=== PATIENT | male | born 1940 | race Caucasian/White ===

== ENCOUNTER 2018-10-27 17:00 | Inpatient (IN) | payer MEDICARE, SELFPAY ==
[2018-10-27 17:55] VITALS: BP 119/68; PULSE 104; RESP 22; TEMP 36.8; O2SAT 98
--- NOTE | 2018-10-27 17:56 | NURSING ---
Patient admitted to room 20 from [facility]. Oriented to room and call light system explained.
[2018-10-27 18:32] VITALS: BMI 19.5
[2018-10-27 18:37] VITALS: BMI 19.6
[2018-10-27 20:05] VITALS: PULSE 104; RESP 19; O2SAT 99
[2018-10-27] MEDS: Ipratropium/Albuterol Sulfate 3 ML AMPUL.NEB INHALATION ×2 (20:05→23:00)
[2018-10-27] MEDS: Budesonide Respules 0.5 MG/2 ML AMPUL.NEB. INHALATION (20:05)
[2018-10-27 21:26] LABS: Bedside Glucose 405 mg/dL (70-110)
--- NOTE | 2018-10-27 21:40 | PCM.HP.STD ---
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 The patient is a 78 year old Male with below past medical history with following: Admitted [facility] with acute respiratory failure, home oxygen 3 Liters per nasal cannula. Treated with Levaquin, Steroids, Aerosols, Guaifenesin. BiPAP at night, off and on during the day. CT chest showed right middle lobe consolidation, neoplasm cannot be excluded. Palliative care consulted. 10/27/2018 Admit to TCU with debility, here for rehabilitation, strengthening, prior to discharged home with spouse. 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) Diabetes mellitus (Chronic) BPH (benign prostatic hyperplasia) (Chronic) Iron deficiency anemia (Chronic) Allergic rhinitis (Chronic) Insomnia (Chronic) Allergies morphine Allergy (Verified 10/27/18 18:36) Other Home Medications: Ambulatory Orders Medication Instructions Recorded Acetaminophen [Tylenol] 650 mg PO Q4H PRN PRN 10/27/18 Albuterol Aerosols [Ventolin 2.5 mg INHALATION Q4H PRN PRN 10/27/18 Aerosols] Budesonide Aerosol [Pulmicort 0.5 mg INHALATION BID 10/27/18 Aerosol] Docusate Sodium 100 mg PO DAILY 10/27/18 Ferrous Sulfate 325 mg PO DAILY 10/27/18 Fluticasone 0.05% [Flonase Nasal 1 spray NASAL 5X/DAY PRN 10/27/18 [place]] Furosemide [Lasix] 40 mg PO BIDLX 10/27/18 Glipizide 5 mg PO BIDCM 10/27/18 Ipratropium/Albuterol Sulfate 3 ml INHALATION Q4H.RT 10/27/18 [Duoneb] Loratadine 10 mg PO DAILY 10/27/18 Losartan Potassium 25 mg PO DAILY 10/27/18 Melatonin 3 mg PO QHS PRN 10/27/18 Metformin HCl 500 mg PO BID 10/27/18 Potassium Chloride [K-Dur] 20 meq PO BID 10/27/18 Prednisone 40 mg PO DAILY 10/27/18 Tamsulosin HCl 0.4 mg PO DAILY 10/27/18 Terazosin HCl 10 mg PO QHS 10/27/18 traMADol [Ultram] 50 mg PO Q12H PRN PRN 10/27/18 Surgical History: - - Needle biopsy of lung, [place] filter. Psychiatric History: No pertinent psych hx Lives: Spouse/ Significant Other Smoking Status: Former smoker Tobacco Use: Non-smoker Alcohol: None Drugs: None - *Family History Maternal History Items: No pertinent history Paternal History Items: No pertinent history Review of Systems Constitutional: Reports: Weakness. Denies: Chills, Fever, Weight Change HEENT: Denies: Head Aches, Sinus Congestion, Sinus Drainage Cardiovascular: Denies: Chest Pain, Palpitations Respiratory: Reports: Shortness of Breath, Shortness of breath at rest, Shortness of breath upon exertion, Wheezing. Denies: Cough, Sputum production Gastrointestinal: Denies: Abdominal Pain, Nausea, Vomiting Genitourinary: Denies: Dysuria Musculoskeletal: Denies: Joint Pain, Joint Tenderness Skin: Denies: Rash, Wounds Neurological: Denies: Numbness, Tingling, Focal weakness Psychiatric: Denies: Anxiety, Depression, Homicidal Ideations, Suicidal Ideations Hematologic/ Lymphatic: Denies: Easy Bruising, Easy Bleeding VTE Information - Inpt Only VTE Present on Admission: No VTE Mechan Device Prophylaxis: Knee High FELIX Hose VTE Pharm Prophylaxis ordered?: Yes Patient Problems: Active and Suspected Problems Debility (Acute) Acute respiratory failure (Acute) Dyspnea on exertion (Acute) Community acquired pneumonia (Acute) Congestive heart failure (Acute) Lung mass (Acute) Hypokalemia (Acute) - Physical Exam General: Alert, Oriented x3, Cooperative HEENT: Atraumatic, PERRLA, EOMI, Normocephalic Neck: Supple, No JVD, Negative Carotid Bruits Lungs: Clear to auscultation, Rhonchi, Wheezes, - - Decreased air movement. Cardiovascular: Regular rate, No murmurs Abdomen: Bowel Sounds Present, Soft, Non Tender Extremities: No edema, Capillary Refill Less than 3 Seconds Skin: No rashes, No breakdown Musculoskeletal: No Tenderness to Palpation of Joints or Extremities Neurological: Cranial nerves II-XII grossly intact Psych/Mental Status: Normal Affect, Appropriate Vital Signs Temp Pulse Resp BP Pulse Ox 98.2 F 104 H 22 H 119/68 98 10/27/18 17:55 10/27/18 17:55 10/27/18 17:55 10/27/18 17:55 10/27/18 17:55 Oxygen Flow Rate (L/min) 3 Oxygen Delivery Method Nasal Cannula Weight: 58.5 kg Body Mass Index (BMI) 19.5 Intake and Output for Last 24 Hours 10/25/18 10/26/18 10/27/18 23:59 23:59 23:59 Intake Total 180 / 180 Balance 180 / 180 POC Glucose 10/27/18 21:21 POC Glucose 405 H Assessment/Plan All Active Problems Debility (Acute) Acute respiratory failure (Acute) Dyspnea on exertion (Acute) Community acquired pneumonia (Acute) Congestive heart failure (Acute) Lung mass (Acute) Hypokalemia (Acute) 78 year old male with below past medical history hospitalized for acute respiratory failure secondary to community acquired pneumonia, COPD, congestive heart failure, complicated by right middle lobe lung mass, admitted to TCU with debility, here for rehabilitation, strengthening, prior to discharge home with spouse. Debility - PT/OT. Pain - Tylenol 1000MG Q6H PRN mild pain, Tramadol 50MG Q12H PRN moderate pain. Bowel - Miralax 17GM daily, Senna/colace 1 tablet BID, Dulcolax 10MG daily PRN. Pneumonia vaccination - Administer Prevnar 13 and/or Pneumovax 23 as necessary. DVT prophylaxis - Lovenox 40MG SC daily. COPD - Albuterol 2.5MG Q4H PRN, Pulmicort 0.5MG BID, Duoneb 3ML Q6H, Prednisone taper. BPH - Doxazosin 8MG QHS, Tamsulosin 0.4MG daily. Iron deficiency anemia - Ferrex 150MG daily. Allergic Rhinitis - Loratadine 10MG daily, Flonase 1 spray 5x/day PRN. Congestive Heart Failure - Losartan 25MG daily, Lasix 40MG twice daily. Diabetes Mellitus II - Metformin 500MG BID, Glipizide 5MG BID, add Lantus 10 units BID, while on prednisone taper. Nutrition - Glucerna 120ML 4x/day. Insomnia - Melatonin 3MG QHS PRN. Hypokalemia - K-Dur 20MEQ BID. Lung mass(RML) - Repeat CT of chest with contrast.
--- NOTE | 2018-10-27 21:45 | HP.PCM_ITS ---
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 The patient is a 78 year old Male with below past medical history with following: Admitted [facility] with acute respiratory failure, home oxygen 3 Liters per nasal cannula. Treated with Levaquin, Steroids, Aerosols, Guaifenesin. BiPAP at night, off and on during the day. CT chest showed right middle lobe consolidation, neoplasm cannot be excluded. Palliative care consulted. 10/27/2018 Admit to TCU with debility, here for rehabilitation, strengthening, prior to discharged home with spouse. 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) Diabetes mellitus (Chronic) BPH (benign prostatic hyperplasia) (Chronic) Iron deficiency anemia (Chronic) Allergic rhinitis (Chronic) Insomnia (Chronic) Allergies morphine Allergy (Verified 10/27/18 18:36) Other Home Medications: Ambulatory Orders Medication Instructions Recorded Acetaminophen [Tylenol] 650 mg PO Q4H PRN PRN 10/27/18 Albuterol Aerosols [Ventolin 2.5 mg INHALATION Q4H PRN PRN 10/27/18 Aerosols] Budesonide Aerosol [Pulmicort 0.5 mg INHALATION BID 10/27/18 Aerosol] Docusate Sodium 100 mg PO DAILY 10/27/18 Ferrous Sulfate 325 mg PO DAILY 10/27/18 Fluticasone 0.05% [Flonase Nasal 1 spray NASAL 5X/DAY PRN 10/27/18 [place]] Furosemide [Lasix] 40 mg PO BIDLX 10/27/18 Glipizide 5 mg PO BIDCM 10/27/18 Ipratropium/Albuterol Sulfate 3 ml INHALATION Q4H.RT 10/27/18 [Duoneb] Loratadine 10 mg PO DAILY 10/27/18 Losartan Potassium 25 mg PO DAILY 10/27/18 Melatonin 3 mg PO QHS PRN 10/27/18 Metformin HCl 500 mg PO BID 10/27/18 Potassium Chloride [K-Dur] 20 meq PO BID 10/27/18 Prednisone 40 mg PO DAILY 10/27/18 Tamsulosin HCl 0.4 mg PO DAILY 10/27/18 Terazosin HCl 10 mg PO QHS 10/27/18 traMADol [Ultram] 50 mg PO Q12H PRN PRN 10/27/18 Surgical History: - - Needle biopsy of lung, [place] filter. Psychiatric History: No pertinent psych hx Lives: Spouse/ Significant Other Smoking Status: Former smoker Tobacco Use: Non-smoker Alcohol: None Drugs: None - *Family History Maternal History Items: No pertinent history Paternal History Items: No pertinent history Review of Systems Constitutional: Reports: Weakness. Denies: Chills, Fever, Weight Change HEENT: Denies: Head Aches, Sinus Congestion, Sinus Drainage Cardiovascular: Denies: Chest Pain, Palpitations Respiratory: Reports: Shortness of Breath, Shortness of breath at rest, Shortness of breath upon exertion, Wheezing. Denies: Cough, Sputum production Gastrointestinal: Denies: Abdominal Pain, Nausea, Vomiting Genitourinary: Denies: Dysuria Musculoskeletal: Denies: Joint Pain, Joint Tenderness Skin: Denies: Rash, Wounds Neurological: Denies: Numbness, Tingling, Focal weakness Psychiatric: Denies: Anxiety, Depression, Homicidal Ideations, Suicidal Ideations Hematologic/ Lymphatic: Denies: Easy Bruising, Easy Bleeding VTE Information - Inpt Only VTE Present on Admission: No VTE Mechan Device Prophylaxis: Knee High FELIX Hose VTE Pharm Prophylaxis ordered?: Yes Patient Problems: Active and Suspected Problems Debility (Acute) Acute respiratory failure (Acute) Dyspnea on exertion (Acute) Community acquired pneumonia (Acute) Congestive heart failure (Acute) Lung mass (Acute) Hypokalemia (Acute) - Physical Exam General: Alert, Oriented x3, Cooperative HEENT: Atraumatic, PERRLA, EOMI, Normocephalic Neck: Supple, No JVD, Negative Carotid Bruits Lungs: Clear to auscultation, Rhonchi, Wheezes, - - Decreased air movement. Cardiovascular: Regular rate, No murmurs Abdomen: Bowel Sounds Present, Soft, Non Tender Extremities: No edema, Capillary Refill Less than 3 Seconds Skin: No rashes, No breakdown Musculoskeletal: No Tenderness to Palpation of Joints or Extremities Neurological: Cranial nerves II-XII grossly intact Psych/Mental Status: Normal Affect, Appropriate Vital Signs Temp Pulse Resp BP Pulse Ox 98.2 F 104 H 22 H 119/68 98 10/27/18 17:55 10/27/18 17:55 10/27/18 17:55 10/27/18 17:55 10/27/18 17:55 Oxygen Flow Rate (L/min) 3 Oxygen Delivery Method Nasal Cannula Weight: 58.5 kg Body Mass Index (BMI) 19.5 Intake and Output for Last 24 Hours 10/25/18 10/26/18 10/27/18 23:59 23:59 23:59 Intake Total 180 / 180 Balance 180 / 180 POC Glucose 10/27/18 21:21 POC Glucose 405 H Assessment/Plan All Active Problems Debility (Acute) Acute respiratory failure (Acute) Dyspnea on exertion (Acute) Community acquired pneumonia (Acute) Congestive heart failure (Acute) Lung mass (Acute) Hypokalemia (Acute) 78 year old male with below past medical history hospitalized for acute respiratory failure secondary to community acquired pneumonia, COPD, congestive heart failure, complicated by right middle lobe lung mass, admitted to TCU with debility, here for rehabilitation, strengthening, prior to discharge home with spouse. * Debility - PT/OT. * Pain - Tylenol 1000MG Q6H PRN mild pain, Tramadol 50MG Q12H PRN moderate pain. * Bowel - Miralax 17GM daily, Senna/colace 1 tablet BID, Dulcolax 10MG daily PRN. * Pneumonia vaccination - Administer Prevnar 13 and/or Pneumovax 23 as necessary. * DVT prophylaxis - Lovenox 40MG SC daily. * COPD - Albuterol 2.5MG Q4H PRN, Pulmicort 0.5MG BID, Duoneb 3ML Q6H, Prednisone taper. * BPH - Doxazosin 8MG QHS, Tamsulosin 0.4MG daily. * Iron deficiency anemia - Ferrex 150MG daily. * Allergic Rhinitis - Loratadine 10MG daily, Flonase 1 spray 5x/day PRN. * Congestive Heart Failure - Losartan 25MG daily, Lasix 40MG twice daily. * Diabetes Mellitus II - Metformin 500MG BID, Glipizide 5MG BID, add Lantus 10 units BID, while on prednisone taper. * Nutrition - Glucerna 120ML 4x/day. * Insomnia - Melatonin 3MG QHS PRN. * Hypokalemia - K-Dur 20MEQ BID. * Lung mass(RML) - Repeat CT of chest with contrast.
[2018-10-27 22:07] VITALS: PULSE 105; O2SAT 99
[2018-10-27] MEDS: Doxazosin 4 MG Tablet 8 MG PO (22:32)
[2018-10-27] MEDS: Glucerna Shake 120 ML LIQUID PO (22:34)
[2018-10-27] MEDS: MELATONIN 3 MG TABLET PO (22:49)
[2018-10-27 23:00] VITALS: PULSE 98; RESP 18
[2018-10-27 23:10] VITALS: PULSE 98; RESP 12; RESP 18; O2SAT 99
[2018-10-28] VITALS (9 sets, daily range): BP systolic 157; BP diastolic 56; PULSE 64–112; RESP 12–28; TEMP 35.9; O2SAT 94–99
[2018-10-28] MEDS: Ipratropium/Albuterol Sulfate 3 ML AMPUL.NEB INHALATION ×6 (03:40→21:27)
[2018-10-28] MEDS: Polyethylene Glycol 3350 17 GM PACKET PO (05:58)
[2018-10-28] MEDS: Senna/Docusate Sodium 1 Tablet PO ×2 (06:00→17:46)
[2018-10-28] MEDS: Loratadine 10 MG Tablet PO (06:00)
[2018-10-28] MEDS: Furosemide 40 MG Tablet PO ×2 (06:00→14:02)
[2018-10-28] MEDS: Losartan Potassium 25 MG Tablet PO (06:00)
[2018-10-28 06:05] LABS: Absolute Lymphocyte Count 2.13 X10^3/ul (0.83-4.51); Basophil# 0.01 X10^3/uL; Basophil% 0.1 % (0-1); Eosinophil# 0.15 X10^3/uL; Eosinophils% 1.6 % (0-5); Hematocrit 36.5 % (40-54); Hemoglobin 10.9 g/dl (13.0-16.5); Lymphocyte # 2.13 X10^3/ul (4.0); Lymphocyte % 22.9 % (19-41); Mean Corp Hgb Conc 29.9 g/gl (32-36); Mean Corpuscular Volume 90.6 fL (80-94); Mean Platelet Vol. 9.5 fl (6.2-12.0); Monocyte# 0.98 X10^3/uL; Monocyte% 10.5 % (0-10); Neutrophil # 5.96 X10^3/uL (2.7-7.7); Platelet Count 268 K/mm3 (150-450); RBC Distribution Width CV 14.9 % (11.6-14.6); RBC Distribution Width SD 48.1 fl (35.1-43.9); Red Blood Count 4.03 M/mm3 (4.6-6.2); White Blood Count 9.3 K/mm3 (4.4-11.0)
[2018-10-28] MEDS: Glucerna Shake 120 ML LIQUID PO ×4 (06:05→19:35)
[2018-10-28] MEDS: Nystatin Powder 15gm Bottle 1 APPLIC TOPICAL ×2 (06:06→19:36)
[2018-10-28] MEDS: Menthol/Lanolin/Calamine/Znox 113 GM Tube 1 APPLIC TOPICAL ×2 (06:06→19:35)
[2018-10-28 06:11] LABS: POSITIVE COUNT NO; POSITIVE DIFFERENTIAL NO; POSITIVE MORPHOLOGY NO
[2018-10-28 06:19] LABS: Anion Gap 5 (5-15); BUN 30 mg/dL (7-18); BUN/Creat Ratio 38.8 RATIO (10-20); Calcium,Total 8.7 mg/dL (8.5-10.1); Chloride 90 mmol/L (98-107); Creatinine, Serum 0.77 mg/dL (0.70-1.30); EST Glomerular Filtration Rate 104 mL/min (>60); Est Glom Filt Rate - Afr Amer 126 mL/min (>60); Glucose 142 mg/dL (74-106); Potassium 4.3 mmol/L (3.5-5.1); Sodium Level 134 mmol/L (136-145)
[2018-10-28 06:21] LABS: Bedside Glucose 142 mg/dL (70-110)
[2018-10-28] MEDS: Enoxaparin 40 MG/0.4 ML Syringe SC (06:45)
[2018-10-28] MEDS: predniSONE 20 MG Tablet 10 MG PO (08:20)
[2018-10-28] MEDS: Iron Polysaccharide Complex 150 MG CAPSULE PO (08:20)
[2018-10-28] MEDS: glipiZIDE 5 MG Tablet PO ×2 (08:20→17:44)
[2018-10-28] MEDS: 0.9% Saline Lock 10 ML Syringe IV (08:25)
[2018-10-28 11:36] LABS: Bedside Glucose 294 mg/dL (70-110)
[2018-10-28] MEDS: Tuberculin,Purif.prot.deriv. 50 TU/ML Vial 5 ML ID (11:47)
[2018-10-28] MEDS: traMADol 50 MG Tablet PO (11:54)
[2018-10-28] MEDS: Fluticasone 0.05% 1 SPRAY NASAL.SRY NASAL ×3 (13:59→19:35)
--- NOTE | 2018-10-28 16:27 | NURSING ---
brought in pt's own bipap in room filled with distilled water
[2018-10-28 17:06] LABS: Bedside Glucose 400 mg/dL (70-110)
[2018-10-28] MEDS: Tamsulosin HCl 0.4 MG Capsule PO (17:47)
--- NOTE | 2018-10-28 18:36 | NURSING ---
blood sugar 400 tonight, Dr Rankin adjusted insulins
[2018-10-28] MEDS: Doxazosin 4 MG Tablet 8 MG PO (19:35)
--- NOTE | 2018-10-28 20:10 | CPS ---
Pts. home BiPAP unit set up at bedside. O2 bled in at 3L per patients normal home settings. Water chamber full.
[2018-10-28 21:06] LABS: Bedside Glucose 412 mg/dL (70-110)
[2018-10-29] VITALS (8 sets, daily range): BP systolic 112; BP diastolic 62; PULSE 91–110; RESP 12–25; TEMP 37.1; O2SAT 97–100
[2018-10-29] MEDS: Ipratropium/Albuterol Sulfate 3 ML AMPUL.NEB INHALATION ×6 (00:42→23:10)
[2018-10-29] MEDS: Polyethylene Glycol 3350 17 GM PACKET PO (06:11)
[2018-10-29] MEDS: Glucerna Shake 120 ML LIQUID PO ×4 (06:11→22:30)
[2018-10-29] MEDS: Senna/Docusate Sodium 1 Tablet PO ×2 (06:13→17:34)
[2018-10-29] MEDS: Furosemide 40 MG Tablet PO ×2 (06:13→15:17)
[2018-10-29] MEDS: Loratadine 10 MG Tablet PO (06:13)
[2018-10-29] MEDS: Enoxaparin 40 MG/0.4 ML Syringe SC (06:13)
[2018-10-29] MEDS: Losartan Potassium 25 MG Tablet PO (06:13)
[2018-10-29] MEDS: Nystatin Powder 15gm Bottle 1 APPLIC TOPICAL ×2 (06:15→22:30)
[2018-10-29] MEDS: Menthol/Lanolin/Calamine/Znox 113 GM Tube 1 APPLIC TOPICAL ×2 (06:15→22:30)
[2018-10-29] MEDS: Fluticasone 0.05% 1 SPRAY NASAL.SRY NASAL ×4 (06:16→22:31)
[2018-10-29 06:21] LABS: Bedside Glucose 57 mg/dL (70-110)
[2018-10-29 06:41] LABS: Bedside Glucose 78 mg/dL (70-110)
--- NOTE | 2018-10-29 06:41 | NURSING ---
Addendum entered by Ceci Wade 10/29/18 08:53: Dr Rankin aware, new order hold lantus. Original Note: Pt blood sugar 57 this AM. Pt alert and oriented x3 and denies any symptoms. OAldo and reshma hernandez provided. Recheck 78. Will update Dr. Rankin.
[2018-10-29] MEDS: Iron Polysaccharide Complex 150 MG CAPSULE PO (08:05)
[2018-10-29] MEDS: glipiZIDE 5 MG Tablet PO ×2 (08:06→17:33)
[2018-10-29] MEDS: predniSONE 20 MG Tablet 10 MG PO (08:06)
[2018-10-29 11:00] LABS: Bedside Glucose 221 mg/dL (70-110)
[2018-10-29 17:00] LABS: Bedside Glucose 466 mg/dL (70-110)
[2018-10-29] MEDS: Tamsulosin HCl 0.4 MG Capsule PO (17:34)
[2018-10-29] MEDS: Insulin Lispro 100 UNIT/ML INSULN.PEN 10 UNIT SC (18:53)
[2018-10-29 20:41] LABS: Bedside Glucose 425 mg/dL (70-110)
[2018-10-29 21:41] LABS: Bedside Glucose 364 mg/dL (70-110)
[2018-10-29] MEDS: Doxazosin 4 MG Tablet 8 MG PO (22:29)
[2018-10-30] MEDS: Polyethylene Glycol 3350 17 GM PACKET PO (06:07)
[2018-10-30] MEDS: Menthol/Lanolin/Calamine/Znox 113 GM Tube 1 APPLIC TOPICAL ×2 (06:08→20:22)
[2018-10-30] MEDS: Loratadine 10 MG Tablet PO (06:08)
[2018-10-30] MEDS: Enoxaparin 40 MG/0.4 ML Syringe SC (06:08)
[2018-10-30] MEDS: Senna/Docusate Sodium 1 Tablet PO ×2 (06:08→16:44)
[2018-10-30] MEDS: Nystatin Powder 15gm Bottle 1 APPLIC TOPICAL ×2 (06:08→20:22)
[2018-10-30] MEDS: Losartan Potassium 25 MG Tablet PO (06:08)
[2018-10-30] MEDS: Furosemide 40 MG Tablet PO ×2 (06:08→13:17)
[2018-10-30] MEDS: Fluticasone 0.05% 1 SPRAY NASAL.SRY NASAL ×4 (06:10→20:23)
[2018-10-30] MEDS: Glucerna Shake 120 ML LIQUID PO ×4 (06:11→20:20)
--- NOTE | 2018-10-30 06:39 | NURSING ---
Pt blood sugar this AM 57. A&Ox3. Stood up to use the urinal without any complications. Pt asymptomatic. Oari and reshma hernandez provided. Blood sugar recheck 113. Pt resting in bed with call light in reach.
[2018-10-30 06:45] LABS: Bedside Glucose 113 mg/dL (70-110)
[2018-10-30 06:45] LABS: Bedside Glucose 57 mg/dL (70-110)
[2018-10-30 07:24] VITALS: PULSE 100; RESP 16; O2SAT 100
[2018-10-30] MEDS: Ipratropium/Albuterol Sulfate 3 ML AMPUL.NEB INHALATION ×3 (07:24→15:29)
--- NOTE | 2018-10-30 08:08 | NURSING ---
Addendum entered by Heidi Copeland 10/30/18 08:23: Per andrzej De Leon to hold AM humalog and Lantus. Original Note: New order to d/c Glipizide.
[2018-10-30] MEDS: Iron Polysaccharide Complex 150 MG CAPSULE PO (09:10)
[2018-10-30] MEDS: predniSONE 20 MG Tablet 10 MG PO (09:10)
[2018-10-30] MEDS: traMADol 50 MG Tablet PO (09:16)
[2018-10-30 11:25] LABS: Bedside Glucose 347 mg/dL (70-110)
[2018-10-30 11:31] VITALS: PULSE 100; RESP 20
--- NOTE | 2018-10-30 12:16 | PCM.PN.RX ---
<Yevgeniy Arrieta D - Last Filed: 10/30/18 12:16> Progress Note - Pharmacy Subjective: TCU Admission Objective: Allergies morphine Allergy (Verified 10/27/18 18:36) Other Current Medications Generic Name Dose Route Start Last Admin Trade Name Freq PRN Reason Stop Dose Admin Acetaminophen 1,000 mg 10/27/18 22:00 Tylenol PO Q6H PRN PRN MILD PAIN (1-3/10) Albuterol Sulfate 2.5 mg 10/27/18 18:19 Ventolin Aerosols INHALATION Q4H PRN PRN SOB &/OR WHEEZING Albuterol/Ipratropium 3 ml 10/27/18 18:30 10/30/18 11:31 Duoneb INHALATION 3 ml Q4H.RT KYLE Administration Bisacodyl 10 mg 10/27/18 21:58 Dulcolax PO DAILY PRN Constipation Budesonide 0.5 mg 10/28/18 06:00 10/27/18 20:05 Pulmicort Aerosol INHALATION 0.5 mg BID.RT KYLE Administration Calamine/Phenol 1 applic 10/28/18 06:00 10/30/18 06:08 Calmoseptine Ointment TOPICAL 1 applicatio 0600,2200 KYLE Administration Protocol Dextrose 0 gm 10/29/18 19:12 D50w Syringe IV X1 PRN Hypoglycemia Protocol Doxazosin Mesylate 8 mg 10/27/18 22:00 10/29/18 22:29 Cardura PO 8 mg QHS KYLE Administration Enoxaparin Sodium 40 mg 10/28/18 06:00 10/30/18 06:08 Lovenox SC 40 mg DAILY@0600 KYLE Administration Fluticasone Propionate 1 spray 10/28/18 12:00 10/30/18 06:10 Flonase Nasal Carr NASAL 1 spray 4X/DAY KYLE Administration Furosemide 40 mg 10/28/18 06:00 10/30/18 06:08 Lasix PO 40 mg BIDLX KYLE Administration Glucagon 1 mg 10/29/18 19:12 IM .X1 PRN Hypoglycemia Insulin Glargine 15 units 10/29/18 06:00 10/30/18 08:24 Lantus ([facility]) SC Not Given BID KYLE Insulin Human Lispro 10 unit 10/29/18 18:45 10/30/18 08:24 Humalog Kwikpen ([facility]) SC Not Given TIDAC [facility] Loratadine 10 mg 10/28/18 06:00 10/30/18 06:08 Claritin PO 10 mg DAILY KYLE Administration Losartan Potassium 25 mg 10/28/18 06:00 10/30/18 06:08 Cozaar PO 25 mg DAILY KYLE Administration Melatonin 3 mg 10/27/18 18:19 10/27/18 22:49 Melatonin PO 3 mg QHS PRN Administration INSOMNIA Metformin HCl 500 mg 10/28/18 08:00 10/30/18 09:11 Glucophage PO Not Given BIDCM [facility] Multi-Ingredient Cream 1 applic 10/28/18 06:00 10/30/18 06:08 Eucerin TOPICAL 1 applicatio 599,0 [facility] Administration Protocol Nutritional Formula (Lactose Free) 120 ml 10/27/18 22:00 10/30/18 06:11 Glucerna Shake PO 120 ml 4X/DAY KYLE Administration Nystatin 1 applic 10/28/18 06:00 10/30/18 06:08 Mycostatin Powder TOPICAL 1 applicatio 599,0 [facility] Administration Protocol Polyethylene Glycol 17 gm 10/28/18 06:00 10/30/18 06:07 Miralax PO 17 gm DAILY [facility] Administration Polysaccharide Iron Complex 150 mg 10/28/18 08:00 10/30/18 09:10 Ferrex 150 PO 150 mg DAILYCM [facility] Administration Potassium Bicarb/Potassium Chloride 25 meq 10/30/18 08:00 10/30/18 09:18 Potassium Chl 25 Meq Eff (For Liquid) PO 25 meq BIDCM [facility] Administration Prednisone 40 mg 10/28/18 08:00 10/30/18 09:10 PO 11/06/18 07:59 40 mg DAILY@0800 [facility] Administration Taper Senna/Docusate Sodium 1 tablet 10/28/18 06:00 10/30/18 06:08 Senokot-S, Zena-Colace PO 1 tablet BID [facility] Administration Sodium Chloride 5 - 10 ml 10/28/18 06:46 10/28/18 08:25 IV 10 ml PRN PRN Administration SALINE FLUSH Tamsulosin HCl 0.4 mg 10/28/18 17:30 10/29/18 17:34 Flomax PO 0.4 mg DAILY@1730 KYLE Administration Tramadol HCl 50 mg 10/27/18 18:19 10/30/18 09:16 Ultram PO 50 mg Q12H PRN PRN Administration MODERATE PAIN (4-5/10) Tuberculin PPD 5 tu 11/04/18 10:00 Tubersol, Aplisol, Ppd ID 11/04/18 10:01 X1 ONE Problem List Debility (Acute) Acute respiratory failure (Acute) Dyspnea on exertion (Acute) Community acquired pneumonia (Acute) Congestive heart failure (Acute) Chronic obstructive pulmonary disease (Chronic) 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) Lung mass (Acute) Diabetes mellitus (Chronic) BPH (benign prostatic hyperplasia) (Chronic) Iron deficiency anemia (Chronic) Allergic rhinitis (Chronic) Insomnia (Chronic) Hypokalemia (Acute) Vital Signs Temp Pulse Resp BP Pulse Ox 98.7 F 100 20 H 112/62 100 10/29/18 15:39 10/30/18 11:31 10/30/18 11:31 10/29/18 15:39 10/30/18 07:24 Oxygen Flow Rate (L/min) 3 Oxygen Delivery Method Nasal Cannula Weight: 58.5 kg Body Mass Index (BMI) 19.5 Sodium 134 mmol/L (136-145) L 10/28/18 05:35 Potassium 4.3 mmol/L (3.5-5.1) 10/28/18 05:35 Chloride 90 mmol/L (98-107) L 10/28/18 05:35 Carbon Dioxide 39.0 mmol/L (21.0-32.0) H 10/28/18 05:35 Anion Gap 5 (5-15) 10/28/18 05:35 BUN 30 mg/dL (7-18) H 10/28/18 05:35 Creatinine 0.77 mg/dL (0.70-1.30) 10/28/18 05:35 Est GFR (MDRD) Af Amer 126 mL/min (>60) 10/28/18 05:35 Est GFR (MDRD) Non-Af 104 mL/min (>60) 10/28/18 05:35 BUN/Creatinine Ratio 38.8 RATIO (10-20) H 10/28/18 05:35 Glucose 142 mg/dL (74-106) H 10/28/18 05:35 Assessment/Plan: 1) Pain APAP for mild pain, tramadol for moderate pain. Continue to monitor daily pain scores, prn medication use. 2) Pulm Budesonide aerosols on hold while on prednisone, prednisone, albuterol prn, fluticasone nasally, Duoneb aerosols scheduled. Continue to monitor prn medication use, for shortness of breath. * Recommend to change Duoneb aerosols to while awake frequency. 3) DM2 Metformin, insulin glargine and lispro. Continue to monitor renal function, BGT. 4) BPH Tamsulosin and doxazosin. Continue to monitor symptoms. * Please consider dc one alpha gregg to avoid dual therapy. Consider raising the dose of the other if still needed or add from an additional class such as finasteride. 5) Heart Failure Losartan, furosemide/KCL, 6) DVT PPx Enoxaparin daily. Continue to monitor s/s bleeding/clot. 7) Sleep Melatonin at HS. Continue to monitor for insomnia. Psychotropic Medications: None Unnecessary Medications: None Bowel Regimen: 8) Senna/s, PEG, prn bisacodyl. Continue to monitor prn medication use, for constipation/diarrhea. Date of Note:: 10/30/18 - Provider Comments Provider responsibility: Provider responsible to enter orders to implement recommendations <Wili Rankin Chi - Last Filed: 10/30/18 13:43> Progress Note - Pharmacy Subjective: [] Objective: Allergies morphine Allergy (Verified 10/27/18 18:36) Other Current Medications Generic Name Dose Route Start Last Admin Trade Name Freq PRN Reason Stop Dose Admin Acetaminophen 1,000 mg 10/27/18 22:00 Tylenol PO Q6H PRN PRN MILD PAIN (1-3/10) Albuterol Sulfate 2.5 mg 10/27/18 18:19 Ventolin Aerosols INHALATION Q4H PRN PRN SOB &/OR WHEEZING Albuterol/Ipratropium 3 ml 10/27/18 18:30 10/30/18 11:31 Duoneb INHALATION 3 ml Q4H.RT KYLE Administration Bisacodyl 10 mg 10/27/18 21:58 Dulcolax PO DAILY PRN Constipation Budesonide 0.5 mg 10/28/18 06:00 10/27/18 20:05 Pulmicort Aerosol INHALATION 0.5 mg BID.RT KYLE Administration Calamine/Phenol 1 applic 10/28/18 06:00 10/30/18 06:08 Calmoseptine Ointment TOPICAL 1 applicatio 0600,2200 [facility] Administration Protocol Dextrose 0 gm 10/29/18 19:12 D50w Syringe IV X1 PRN Hypoglycemia Protocol Doxazosin Mesylate 8 mg 10/27/18 22:00 10/29/18 22:29 Cardura PO 8 mg QHS KYLE Administration Enoxaparin Sodium 40 mg 10/28/18 06:00 10/30/18 06:08 Lovenox SC 40 mg DAILY@0600 KYLE Administration Fluticasone Propionate 1 spray 10/28/18 12:00 10/30/18 12:51 Flonase Nasal Carr NASAL 1 spray 4X/DAY KYLE Administration Furosemide 40 mg 10/28/18 06:00 10/30/18 13:17 Lasix PO 40 mg BIDLX KYLE Administration Glucagon 1 mg 10/29/18 19:12 IM .X1 PRN Hypoglycemia Insulin Glargine 15 units 10/29/18 06:00 10/30/18 08:24 Lantus ([facility]) SC Not Given BID KYLE Insulin Human Lispro 10 unit 10/29/18 18:45 10/30/18 12:51 Humalog Kwikpen ([facility]) SC 10 units TIDAC [facility] Administration Loratadine 10 mg 10/28/18 06:00 10/30/18 06:08 Claritin PO 10 mg DAILY KYLE Administration Losartan Potassium 25 mg 10/28/18 06:00 10/30/18 06:08 Cozaar PO 25 mg DAILY KYLE Administration Melatonin 3 mg 10/27/18 18:19 10/27/18 22:49 Melatonin PO 3 mg QHS PRN Administration INSOMNIA Metformin HCl 500 mg 10/28/18 08:00 10/30/18 09:11 Glucophage PO Not Given BIDCM [facility] Multi-Ingredient Cream 1 applic 10/28/18 06:00 10/30/18 06:08 Eucerin TOPICAL 1 applicatio 599,0 [facility] Administration Protocol Nutritional Formula (Lactose Free) 120 ml 10/27/18 22:00 10/30/18 12:53 Glucerna Shake PO 120 ml 4X/DAY KYLE Administration Nystatin 1 applic 10/28/18 06:00 10/30/18 06:08 Mycostatin Powder TOPICAL 1 applicatio 06,2200 [facility] Administration Protocol Polyethylene Glycol 17 gm 10/28/18 06:00 10/30/18 06:07 Miralax PO 17 gm DAILY KYLE Administration Polysaccharide Iron Complex 150 mg 10/28/18 08:00 10/30/18 09:10 Ferrex 150 PO 150 mg DAILYCM KYLE Administration Potassium Bicarb/Potassium Chloride 25 meq 10/30/18 08:00 10/30/18 09:18 Potassium Chl 25 Meq Eff (For Liquid) PO 25 meq BIDCM KYLE Administration Prednisone 40 mg 10/28/18 08:00 10/30/18 09:10 PO 11/06/18 07:59 40 mg DAILY@0800 KYLE Administration Taper Senna/Docusate Sodium 1 tablet 10/28/18 06:00 10/30/18 06:08 Senokot-S, Zena-Colace PO 1 tablet BID KYLE Administration Sodium Chloride 5 - 10 ml 10/28/18 06:46 10/28/18 08:25 IV 10 ml PRN PRN Administration SALINE FLUSH Tamsulosin HCl 0.4 mg 10/28/18 17:30 10/29/18 17:34 Flomax PO 0.4 mg DAILY@1730 KYLE Administration Tramadol HCl 50 mg 10/27/18 18:19 10/30/18 09:16 Ultram PO 50 mg Q12H PRN PRN Administration MODERATE PAIN (4-5/10) Tuberculin PPD 5 tu 11/04/18 10:00 Tubersol, Aplisol, Ppd ID 11/04/18 10:01 X1 ONE Problem List Debility (Acute) Acute respiratory failure (Acute) Dyspnea on exertion (Acute) Community acquired pneumonia (Acute) Congestive heart failure (Acute) Chronic obstructive pulmonary disease (Chronic) 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) Lung mass (Acute) Diabetes mellitus (Chronic) BPH (benign prostatic hyperplasia) (Chronic) Iron deficiency anemia (Chronic) Allergic rhinitis (Chronic) Insomnia (Chronic) Hypokalemia (Acute) Vital Signs Temp Pulse Resp BP Pulse Ox 98.7 F 100 20 H 112/62 100 10/29/18 15:39 10/30/18 11:31 10/30/18 11:31 10/29/18 15:39 10/30/18 07:24 Oxygen Flow Rate (L/min) 3 Oxygen Delivery Method Nasal Cannula Weight: 58.5 kg Body Mass Index (BMI) 19.5 Sodium 134 mmol/L (136-145) L 10/28/18 05:35 Potassium 4.3 mmol/L (3.5-5.1) 10/28/18 05:35 Chloride 90 mmol/L (98-107) L 10/28/18 05:35 Carbon Dioxide 39.0 mmol/L (21.0-32.0) H 10/28/18 05:35 Anion Gap 5 (5-15) 10/28/18 05:35 BUN 30 mg/dL (7-18) H 10/28/18 05:35 Creatinine 0.77 mg/dL (0.70-1.30) 10/28/18 05:35 Est GFR (MDRD) Af Amer 126 mL/min (>60) 10/28/18 05:35 Est GFR (MDRD) Non-Af 104 mL/min (>60) 10/28/18 05:35 BUN/Creatinine Ratio 38.8 RATIO (10-20) H 10/28/18 05:35 Glucose 142 mg/dL (74-106) H 10/28/18 05:35 Assessment/Plan: Psychotropic Medications: Unnecessary Medications: Bowel Regimen: - Provider Comments Provider responsibility: Provider responsible to enter orders to implement recommendations Provider Comments to Recommendations by Pharmacy: Agree
--- NOTE | 2018-10-30 12:23 | PHA.CONS_ITS ---
<Yevgeniy Arrieta D - Last Filed: 10/30/18 12:16> Progress Note - Pharmacy Subjective: TCU Admission Objective: Allergies morphine Allergy (Verified 10/27/18 18:36) Other Current Medications Generic Name Dose Route Start Last Admin Trade Name Freq PRN Reason Stop Dose Admin Acetaminophen 1,000 mg 10/27/18 22:00 Tylenol PO Q6H PRN PRN MILD PAIN (1-3/10) Albuterol Sulfate 2.5 mg 10/27/18 18:19 Ventolin Aerosols INHALATION Q4H PRN PRN SOB &/OR WHEEZING Albuterol/Ipratropium 3 ml 10/27/18 18:30 10/30/18 11:31 Duoneb INHALATION 3 ml Q4H.RT KYLE Administration Bisacodyl 10 mg 10/27/18 21:58 Dulcolax PO DAILY PRN Constipation Budesonide 0.5 mg 10/28/18 06:00 10/27/18 20:05 Pulmicort Aerosol INHALATION 0.5 mg BID.RT KYLE Administration Calamine/Phenol 1 applic 10/28/18 06:00 10/30/18 06:08 Calmoseptine Ointment TOPICAL 1 applicatio 0600,2200 KYLE Administration Protocol Dextrose 0 gm 10/29/18 19:12 D50w Syringe IV X1 PRN Hypoglycemia Protocol Doxazosin Mesylate 8 mg 10/27/18 22:00 10/29/18 22:29 Cardura PO 8 mg QHS KYLE Administration Enoxaparin Sodium 40 mg 10/28/18 06:00 10/30/18 06:08 Lovenox SC 40 mg DAILY@0600 KYLE Administration Fluticasone Propionate 1 spray 10/28/18 12:00 10/30/18 06:10 Flonase Nasal [place] NASAL 1 spray 4X/DAY KYLE Administration Furosemide 40 mg 10/28/18 06:00 10/30/18 06:08 Lasix PO 40 mg BIDLX KYLE Administration Glucagon 1 mg 10/29/18 19:12 IM .X1 PRN Hypoglycemia Insulin Glargine 15 units 10/29/18 06:00 10/30/18 08:24 Lantus ([facility]) SC Not Given BID KYLE Insulin Human Lispro 10 unit 10/29/18 18:45 10/30/18 08:24 Humalog Kwikpen ([facility]) SC Not Given TIDAC [facility] Loratadine 10 mg 10/28/18 06:00 10/30/18 06:08 Claritin PO 10 mg DAILY KYLE Administration Losartan Potassium 25 mg 10/28/18 06:00 10/30/18 06:08 Cozaar PO 25 mg DAILY KYLE Administration Melatonin 3 mg 10/27/18 18:19 10/27/18 22:49 Melatonin PO 3 mg QHS PRN Administration INSOMNIA Metformin HCl 500 mg 10/28/18 08:00 10/30/18 09:11 Glucophage PO Not Given BIDCM [facility] Multi-Ingredient Cream 1 applic 10/28/18 06:00 10/30/18 06:08 Eucerin TOPICAL 1 applicatio 599,0 [facility] Administration Protocol Nutritional Formula (Lactose Free) 120 ml 10/27/18 22:00 10/30/18 06:11 Glucerna Shake PO 120 ml 4X/DAY KYLE Administration Nystatin 1 applic 10/28/18 06:00 10/30/18 06:08 Mycostatin Powder TOPICAL 1 applicatio 599,0 [facility] Administration Protocol Polyethylene Glycol 17 gm 10/28/18 06:00 10/30/18 06:07 Miralax PO 17 gm DAILY [facility] Administration Polysaccharide Iron Complex 150 mg 10/28/18 08:00 10/30/18 09:10 Ferrex 150 PO 150 mg DAILYCM [facility] Administration Potassium Bicarb/Potassium Chloride 25 meq 10/30/18 08:00 10/30/18 09:18 Potassium Chl 25 Meq Eff (For Liquid) PO 25 meq BIDCM [facility] Administration Prednisone 40 mg 10/28/18 08:00 10/30/18 09:10 PO 11/06/18 07:59 40 mg DAILY@0800 [facility] Administration Taper Senna/Docusate Sodium 1 tablet 10/28/18 06:00 10/30/18 06:08 Senokot-S, Zena-Colace PO 1 tablet BID [facility] Administration Sodium Chloride 5 - 10 ml 10/28/18 06:46 10/28/18 08:25 IV 10 ml PRN PRN Administration SALINE FLUSH Tamsulosin HCl 0.4 mg 10/28/18 17:30 10/29/18 17:34 Flomax PO 0.4 mg DAILY@1730 KYLE Administration Tramadol HCl 50 mg 10/27/18 18:19 10/30/18 09:16 Ultram PO 50 mg Q12H PRN PRN Administration MODERATE PAIN (4-5/10) Tuberculin PPD 5 tu 11/04/18 10:00 Tubersol, Aplisol, Ppd ID 11/04/18 10:01 X1 ONE Problem List Debility (Acute) Acute respiratory failure (Acute) Dyspnea on exertion (Acute) Community acquired pneumonia (Acute) Congestive heart failure (Acute) Chronic obstructive pulmonary disease (Chronic) 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) Lung mass (Acute) Diabetes mellitus (Chronic) BPH (benign prostatic hyperplasia) (Chronic) Iron deficiency anemia (Chronic) Allergic rhinitis (Chronic) Insomnia (Chronic) Hypokalemia (Acute) Vital Signs Temp Pulse Resp BP Pulse Ox 98.7 F 100 20 H 112/62 100 10/29/18 15:39 10/30/18 11:31 10/30/18 11:31 10/29/18 15:39 10/30/18 07:24 Oxygen Flow Rate (L/min) 3 Oxygen Delivery Method Nasal Cannula Weight: 58.5 kg Body Mass Index (BMI) 19.5 Sodium 134 mmol/L (136-145) L 10/28/18 05:35 Potassium 4.3 mmol/L (3.5-5.1) 10/28/18 05:35 Chloride 90 mmol/L (98-107) L 10/28/18 05:35 Carbon Dioxide 39.0 mmol/L (21.0-32.0) H 10/28/18 05:35 Anion Gap 5 (5-15) 10/28/18 05:35 BUN 30 mg/dL (7-18) H 10/28/18 05:35 Creatinine 0.77 mg/dL (0.70-1.30) 10/28/18 05:35 Est GFR (MDRD) Af Amer 126 mL/min (>60) 10/28/18 05:35 Est GFR (MDRD) Non-Af 104 mL/min (>60) 10/28/18 05:35 BUN/Creatinine Ratio 38.8 RATIO (10-20) H 10/28/18 05:35 Glucose 142 mg/dL (74-106) H 10/28/18 05:35 Assessment/Plan: 1) Pain APAP for mild pain, tramadol for moderate pain. Continue to monitor daily pain scores, prn medication use. 2) Pulm Budesonide aerosols on hold while on prednisone, prednisone, albuterol prn, fluticasone nasally, Duoneb aerosols scheduled. Continue to monitor prn medication use, for shortness of breath. * Recommend to change Duoneb aerosols to while awake frequency. 3) DM2 Metformin, insulin glargine and lispro. Continue to monitor renal function, BGT. 4) BPH Tamsulosin and doxazosin. Continue to monitor symptoms. * Please consider dc one alpha gregg to avoid dual therapy. Consider raising the dose of the other if still needed or add from an additional class such as finasteride. 5) Heart Failure Losartan, furosemide/KCL, 6) DVT PPx Enoxaparin daily. Continue to monitor s/s bleeding/clot. 7) Sleep Melatonin at HS. Continue to monitor for insomnia. Psychotropic Medications: None Unnecessary Medications: None Bowel Regimen: 8) Senna/s, PEG, prn bisacodyl. Continue to monitor prn medication use, for constipation/diarrhea. Date of Note:: 10/30/18 - Provider Comments Provider responsibility: Provider responsible to enter orders to implement recommendations <Wili Rankin Chi - Last Filed: 10/30/18 13:43> Progress Note - Pharmacy Subjective: [] Objective: Allergies morphine Allergy (Verified 10/27/18 18:36) Other Current Medications Generic Name Dose Route Start Last Admin Trade Name Freq PRN Reason Stop Dose Admin Acetaminophen 1,000 mg 10/27/18 22:00 Tylenol PO Q6H PRN PRN MILD PAIN (1-3/10) Albuterol Sulfate 2.5 mg 10/27/18 18:19 Ventolin Aerosols INHALATION Q4H PRN PRN SOB &/OR WHEEZING Albuterol/Ipratropium 3 ml 10/27/18 18:30 10/30/18 11:31 Duoneb INHALATION 3 ml Q4H.RT KYLE Administration Bisacodyl 10 mg 10/27/18 21:58 Dulcolax PO DAILY PRN Constipation Budesonide 0.5 mg 10/28/18 06:00 10/27/18 20:05 Pulmicort Aerosol INHALATION 0.5 mg BID.RT KYLE Administration Calamine/Phenol 1 applic 10/28/18 06:00 10/30/18 06:08 Calmoseptine Ointment TOPICAL 1 applicatio 0600,2200 [facility] Administration Protocol Dextrose 0 gm 10/29/18 19:12 D50w Syringe IV X1 PRN Hypoglycemia Protocol Doxazosin Mesylate 8 mg 10/27/18 22:00 10/29/18 22:29 Cardura PO 8 mg QHS KYLE Administration Enoxaparin Sodium 40 mg 10/28/18 06:00 10/30/18 06:08 Lovenox SC 40 mg DAILY@0600 KYLE Administration Fluticasone Propionate 1 spray 10/28/18 12:00 10/30/18 12:51 Flonase Nasal [place] NASAL 1 spray 4X/DAY KYLE Administration Furosemide 40 mg 10/28/18 06:00 10/30/18 13:17 Lasix PO 40 mg BIDLX KYLE Administration Glucagon 1 mg 10/29/18 19:12 IM .X1 PRN Hypoglycemia Insulin Glargine 15 units 10/29/18 06:00 10/30/18 08:24 Lantus ([facility]) SC Not Given BID KYLE Insulin Human Lispro 10 unit 10/29/18 18:45 10/30/18 12:51 Humalog Kwikpen ([facility]) SC 10 units TIDAC [facility] Administration Loratadine 10 mg 10/28/18 06:00 10/30/18 06:08 Claritin PO 10 mg DAILY KYLE Administration Losartan Potassium 25 mg 10/28/18 06:00 10/30/18 06:08 Cozaar PO 25 mg DAILY KYLE Administration Melatonin 3 mg 10/27/18 18:19 10/27/18 22:49 Melatonin PO 3 mg QHS PRN Administration INSOMNIA Metformin HCl 500 mg 10/28/18 08:00 10/30/18 09:11 Glucophage PO Not Given BIDCM [facility] Multi-Ingredient Cream 1 applic 10/28/18 06:00 10/30/18 06:08 Eucerin TOPICAL 1 applicatio 599,0 [facility] Administration Protocol Nutritional Formula (Lactose Free) 120 ml 10/27/18 22:00 10/30/18 12:53 Glucerna Shake PO 120 ml 4X/DAY KYLE Administration Nystatin 1 applic 10/28/18 06:00 10/30/18 06:08 Mycostatin Powder TOPICAL 1 applicatio 06,2200 [facility] Administration Protocol Polyethylene Glycol 17 gm 10/28/18 06:00 10/30/18 06:07 Miralax PO 17 gm DAILY KYLE Administration Polysaccharide Iron Complex 150 mg 10/28/18 08:00 10/30/18 09:10 Ferrex 150 PO 150 mg DAILYCM K[facility] Administration Potassium Bicarb/Potassium Chloride 25 meq 10/30/18 08:00 10/30/18 09:18 Potassium Chl 25 Meq Eff (For Liquid) PO 25 meq BIDCM KYLE Administration Prednisone 40 mg 10/28/18 08:00 10/30/18 09:10 PO 11/06/18 07:59 40 mg DAILY@0800 KYLE Administration Taper Senna/Docusate Sodium 1 tablet 10/28/18 06:00 10/30/18 06:08 Senokot-S, Zena-Colace PO 1 tablet BID KYLE Administration Sodium Chloride 5 - 10 ml 10/28/18 06:46 10/28/18 08:25 IV 10 ml PRN PRN Administration SALINE FLUSH Tamsulosin HCl 0.4 mg 10/28/18 17:30 10/29/18 17:34 Flomax PO 0.4 mg DAILY@1730 KYLE Administration Tramadol HCl 50 mg 10/27/18 18:19 10/30/18 09:16 Ultram PO 50 mg Q12H PRN PRN Administration MODERATE PAIN (4-5/10) Tuberculin PPD 5 tu 11/04/18 10:00 Tubersol, Aplisol, Ppd ID 11/04/18 10:01 X1 ONE Problem List Debility (Acute) Acute respiratory failure (Acute) Dyspnea on exertion (Acute) Community acquired pneumonia (Acute) Congestive heart failure (Acute) Chronic obstructive pulmonary disease (Chronic) 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) Lung mass (Acute) Diabetes mellitus (Chronic) BPH (benign prostatic hyperplasia) (Chronic) Iron deficiency anemia (Chronic) Allergic rhinitis (Chronic) Insomnia (Chronic) Hypokalemia (Acute) Vital Signs Temp Pulse Resp BP Pulse Ox 98.7 F 100 20 H 112/62 100 10/29/18 15:39 10/30/18 11:31 10/30/18 11:31 10/29/18 15:39 10/30/18 07:24 Oxygen Flow Rate (L/min) 3 Oxygen Delivery Method Nasal Cannula Weight: 58.5 kg Body Mass Index (BMI) 19.5 Sodium 134 mmol/L (136-145) L 10/28/18 05:35 Potassium 4.3 mmol/L (3.5-5.1) 10/28/18 05:35 Chloride 90 mmol/L (98-107) L 10/28/18 05:35 Carbon Dioxide 39.0 mmol/L (21.0-32.0) H 10/28/18 05:35 Anion Gap 5 (5-15) 10/28/18 05:35 BUN 30 mg/dL (7-18) H 10/28/18 05:35 Creatinine 0.77 mg/dL (0.70-1.30) 10/28/18 05:35 Est GFR (MDRD) Af Amer 126 mL/min (>60) 10/28/18 05:35 Est GFR (MDRD) Non-Af 104 mL/min (>60) 10/28/18 05:35 BUN/Creatinine Ratio 38.8 RATIO (10-20) H 10/28/18 05:35 Glucose 142 mg/dL (74-106) H 10/28/18 05:35 Assessment/Plan: Psychotropic Medications: Unnecessary Medications: Bowel Regimen: - Provider Comments Provider responsibility: Provider responsible to enter orders to implement recommendations Provider Comments to Recommendations by Pharmacy: Agree
[2018-10-30] MEDS: Insulin Lispro 100 UNIT/ML INSULN.PEN 10 UNIT SC ×2 (12:51→17:40)
[2018-10-30 15:22] VITALS: BP 106/57; PULSE 100; RESP 18; TEMP 37; O2SAT 99
[2018-10-30 15:29] VITALS: PULSE 101; RESP 20
[2018-10-30] MEDS: Tamsulosin HCl 0.4 MG Capsule 0.8 MG PO (16:43)
[2018-10-30 17:15] LABS: Bedside Glucose 326 mg/dL (70-110)
[2018-10-30 21:05] LABS: Bedside Glucose 311 mg/dL (70-110)
[2018-10-30 23:46] VITALS: PULSE 103; RESP 12; RESP 18; O2SAT 96
[2018-10-31] VITALS (8 sets, daily range): BP systolic 108; BP diastolic 60; PULSE 88–112; RESP 12–20; TEMP 36.9; O2SAT 95–97
[2018-10-31] MEDS: Menthol/Lanolin/Calamine/Znox 113 GM Tube 1 APPLIC TOPICAL ×2 (05:29→21:02)
[2018-10-31] MEDS: Glucerna Shake 120 ML LIQUID PO ×4 (05:29→21:01)
[2018-10-31] MEDS: Fluticasone 0.05% 1 SPRAY NASAL.SRY NASAL ×4 (05:30→21:02)
[2018-10-31] MEDS: Furosemide 40 MG Tablet PO ×2 (05:33→12:36)
[2018-10-31] MEDS: Senna/Docusate Sodium 1 Tablet PO ×2 (05:33→17:10)
[2018-10-31] MEDS: Enoxaparin 40 MG/0.4 ML Syringe SC (05:34)
[2018-10-31] MEDS: Loratadine 10 MG Tablet PO (05:34)
[2018-10-31] MEDS: Losartan Potassium 25 MG Tablet PO (05:34)
[2018-10-31] MEDS: Nystatin Powder 15gm Bottle 1 APPLIC TOPICAL ×2 (05:36→21:03)
[2018-10-31] MEDS: Polyethylene Glycol 3350 17 GM PACKET PO (05:39)
[2018-10-31 06:50] LABS: Bedside Glucose 167 mg/dL (70-110)
[2018-10-31] MEDS: Ipratropium/Albuterol Sulfate 3 ML AMPUL.NEB INHALATION ×5 (07:12→23:52)
[2018-10-31] MEDS: predniSONE 20 MG Tablet 10 MG PO (08:00)
[2018-10-31] MEDS: Iron Polysaccharide Complex 150 MG CAPSULE PO (08:00)
[2018-10-31] MEDS: Insulin Lispro 100 UNIT/ML INSULN.PEN 10 UNIT SC ×3 (08:01→17:24)
[2018-10-31] MEDS: traMADol 50 MG Tablet PO (10:55)
[2018-10-31 11:20] LABS: Bedside Glucose 85 mg/dL (70-110)
[2018-10-31 12:40] LABS: Bedside Glucose 227 mg/dL (70-110)
[2018-10-31] MEDS: Tamsulosin HCl 0.4 MG Capsule 0.8 MG PO (17:10)
[2018-10-31 17:16] LABS: Bedside Glucose 113 mg/dL (70-110)
[2018-10-31 21:36] LABS: Bedside Glucose 107 mg/dL (70-110)
[2018-11-01] VITALS (7 sets, daily range): BP systolic 111; BP diastolic 53; PULSE 82–107; RESP 12–26; TEMP 36.9; O2SAT 95–100
[2018-11-01] MEDS: Glucerna Shake 120 ML LIQUID PO ×4 (05:45→21:01)
[2018-11-01] MEDS: Menthol/Lanolin/Calamine/Znox 113 GM Tube 1 APPLIC TOPICAL ×2 (05:45→21:02)
[2018-11-01] MEDS: Nystatin Powder 15gm Bottle 1 APPLIC TOPICAL ×2 (05:45→21:02)
[2018-11-01] MEDS: Fluticasone 0.05% 1 SPRAY NASAL.SRY NASAL ×4 (05:46→21:02)
[2018-11-01] MEDS: Furosemide 40 MG Tablet PO ×2 (05:47→14:27)
[2018-11-01] MEDS: Loratadine 10 MG Tablet PO (05:47)
[2018-11-01] MEDS: Senna/Docusate Sodium 1 Tablet PO ×2 (05:47→16:55)
[2018-11-01] MEDS: Enoxaparin 40 MG/0.4 ML Syringe SC (05:47)
[2018-11-01] MEDS: Losartan Potassium 25 MG Tablet PO (05:47)
[2018-11-01] MEDS: Polyethylene Glycol 3350 17 GM PACKET PO (05:49)
[2018-11-01] MEDS: Ipratropium/Albuterol Sulfate 3 ML AMPUL.NEB INHALATION ×4 (06:38→22:30)
[2018-11-01 06:50] LABS: Bedside Glucose 116 mg/dL (70-110)
[2018-11-01] MEDS: Iron Polysaccharide Complex 150 MG CAPSULE PO (08:44)
[2018-11-01] MEDS: Insulin Lispro 100 UNIT/ML INSULN.PEN 10 UNIT SC (08:44)
[2018-11-01] MEDS: predniSONE 20 MG Tablet 10 MG PO (08:46)
[2018-11-01 11:16] LABS: Bedside Glucose 63 mg/dL (70-110)
[2018-11-01 11:35] LABS: Bedside Glucose 66 mg/dL (70-110)
--- NOTE | 2018-11-01 11:48 | NURSING ---
New order to d/c humalog and decrease Lantus to 10 units.
[2018-11-01 12:36] LABS: Bedside Glucose 196 mg/dL (70-110)
[2018-11-01] MEDS: Tamsulosin HCl 0.4 MG Capsule 0.8 MG PO (16:54)
[2018-11-01 17:00] LABS: Bedside Glucose 299 mg/dL (70-110)
[2018-11-01 21:25] LABS: Bedside Glucose 332 mg/dL (70-110)
[2018-11-02] VITALS (8 sets, daily range): BP systolic 110; BP diastolic 64; PULSE 90–111; RESP 12–24; TEMP 36.8; O2SAT 96–99
[2018-11-02] MEDS: Glucerna Shake 120 ML LIQUID PO ×3 (05:20→19:56)
[2018-11-02] MEDS: Fluticasone 0.05% 1 SPRAY NASAL.SRY NASAL ×4 (05:20→19:57)
[2018-11-02] MEDS: Losartan Potassium 25 MG Tablet PO (05:21)
[2018-11-02] MEDS: Senna/Docusate Sodium 1 Tablet PO ×2 (05:21→16:58)
[2018-11-02] MEDS: Furosemide 40 MG Tablet PO ×2 (05:21→12:38)
[2018-11-02] MEDS: Loratadine 10 MG Tablet PO (05:22)
[2018-11-02] MEDS: Enoxaparin 40 MG/0.4 ML Syringe SC (05:22)
[2018-11-02] MEDS: Polyethylene Glycol 3350 17 GM PACKET PO (05:24)
[2018-11-02] MEDS: Nystatin Powder 15gm Bottle 1 APPLIC TOPICAL ×2 (05:25→20:00)
[2018-11-02] MEDS: Menthol/Lanolin/Calamine/Znox 113 GM Tube 1 APPLIC TOPICAL ×2 (05:26→19:59)
[2018-11-02 06:45] LABS: Bedside Glucose 201 mg/dL (70-110)
[2018-11-02] MEDS: Ipratropium/Albuterol Sulfate 3 ML AMPUL.NEB INHALATION ×5 (07:20→23:49)
[2018-11-02] MEDS: Iron Polysaccharide Complex 150 MG CAPSULE PO (09:05)
[2018-11-02] MEDS: predniSONE 20 MG Tablet 10 MG PO (09:06)
[2018-11-02 11:11] LABS: Bedside Glucose 227 mg/dL (70-110)
[2018-11-02] MEDS: Tamsulosin HCl 0.4 MG Capsule 0.8 MG PO (16:57)
[2018-11-02 17:00] LABS: Bedside Glucose 306 mg/dL (70-110)
[2018-11-02 21:01] LABS: Bedside Glucose 296 mg/dL (70-110)
[2018-11-02] MEDS: MELATONIN 3 MG TABLET PO (22:06)
[2018-11-03] VITALS (7 sets, daily range): BP systolic 106; BP diastolic 55; PULSE 74–100; RESP 12–24; TEMP 36.6; O2SAT 94–99
[2018-11-03] MEDS: Polyethylene Glycol 3350 17 GM PACKET PO (06:02)
[2018-11-03] MEDS: Glucerna Shake 120 ML LIQUID PO ×4 (06:05→21:34)
[2018-11-03 06:06] LABS: Bedside Glucose 147 mg/dL (70-110)
[2018-11-03] MEDS: Enoxaparin 40 MG/0.4 ML Syringe SC (06:06)
[2018-11-03] MEDS: Furosemide 40 MG Tablet PO ×2 (06:06→12:14)
[2018-11-03] MEDS: Fluticasone 0.05% 1 SPRAY NASAL.SRY NASAL ×4 (06:06→21:34)
[2018-11-03] MEDS: Losartan Potassium 25 MG Tablet PO (06:06)
[2018-11-03] MEDS: Senna/Docusate Sodium 1 Tablet PO ×2 (06:06→17:12)
[2018-11-03] MEDS: Loratadine 10 MG Tablet PO (06:06)
[2018-11-03] MEDS: Nystatin Powder 15gm Bottle 1 APPLIC TOPICAL ×2 (06:06→21:35)
[2018-11-03] MEDS: Menthol/Lanolin/Calamine/Znox 113 GM Tube 1 APPLIC TOPICAL ×2 (06:07→21:35)
[2018-11-03] MEDS: Ipratropium/Albuterol Sulfate 3 ML AMPUL.NEB INHALATION ×3 (06:48→19:55)
[2018-11-03] MEDS: Insulin Lispro 100 UNIT/ML INSULN.PEN 7 UNIT SC ×3 (08:05→17:13)
[2018-11-03] MEDS: predniSONE 20 MG Tablet 10 MG PO (08:06)
[2018-11-03] MEDS: Iron Polysaccharide Complex 150 MG CAPSULE PO (08:06)
[2018-11-03 11:16] LABS: Bedside Glucose 153 mg/dL (70-110)
[2018-11-03] MEDS: Albuterol 2.5 MG/3 ML VIAL.NEB. INHALATION (12:22)
[2018-11-03 16:55] LABS: Bedside Glucose 346 mg/dL (70-110)
[2018-11-03] MEDS: Tamsulosin HCl 0.4 MG Capsule 0.8 MG PO (17:12)
[2018-11-03 21:25] LABS: Bedside Glucose 254 mg/dL (70-110)
[2018-11-04] VITALS (8 sets, daily range): BP systolic 100; BP diastolic 48; PULSE 87–117; RESP 12–22; TEMP 36.7; O2SAT 93–97
--- NOTE | 2018-11-04 02:02 | NURSING ---
Pt refusing to wear BIPAP. Pt stating he needs to give his face a break. Lots of education was provided by this nurse and respiratory therapy about the importance of the machine and why it is ordered. Pt still refusing. Agreeable to wear it 4/3 at HS.
[2018-11-04] MEDS: Ipratropium/Albuterol Sulfate 3 ML AMPUL.NEB INHALATION ×5 (06:11→22:54)
[2018-11-04] MEDS: Polyethylene Glycol 3350 17 GM PACKET PO (06:18)
[2018-11-04 06:20] LABS: Bedside Glucose 127 mg/dL (70-110)
[2018-11-04] MEDS: Loratadine 10 MG Tablet PO (06:20)
[2018-11-04] MEDS: Glucerna Shake 120 ML LIQUID PO ×4 (06:20→21:01)
[2018-11-04] MEDS: Losartan Potassium 25 MG Tablet PO (06:20)
[2018-11-04] MEDS: Fluticasone 0.05% 1 SPRAY NASAL.SRY NASAL ×4 (06:21→21:01)
[2018-11-04] MEDS: Senna/Docusate Sodium 1 Tablet PO ×2 (06:21→16:59)
[2018-11-04] MEDS: Furosemide 40 MG Tablet PO ×2 (06:21→13:02)
[2018-11-04] MEDS: Menthol/Lanolin/Calamine/Znox 113 GM Tube 1 APPLIC TOPICAL ×2 (06:22→21:02)
[2018-11-04] MEDS: Nystatin Powder 15gm Bottle 1 APPLIC TOPICAL ×2 (06:22→21:03)
[2018-11-04] MEDS: Enoxaparin 40 MG/0.4 ML Syringe SC (06:23)
[2018-11-04 06:35] LABS: Anion Gap 3 (5-15); BUN 23 mg/dL (7-18); BUN/Creat Ratio 33.4 RATIO (10-20); Calcium,Total 8.7 mg/dL (8.5-10.1); Chloride 92 mmol/L (98-107); Creatinine, Serum 0.69 mg/dL (0.70-1.30); EST Glomerular Filtration Rate 119 mL/min (>60); Est Glom Filt Rate - Afr Amer 144 mL/min (>60); Estimated Creatinine Clearance 49.69 ml/min; Glucose 116 mg/dL (74-106); Potassium 4.3 mmol/L (3.5-5.1); Sodium Level 133 mmol/L (136-145)
[2018-11-04 06:50] LABS: Absolute Lymphocyte Count 2.15 X10^3/ul (0.83-4.51); Absolute Neutrophil Count 5.5 X10^3/uL (2.0-7.7); Basophil# 0.02 X10^3/uL; Basophil% 0.2 % (0-1); Eosinophil# 0.22 X10^3/uL; Eosinophils% 2.5 % (0-5); Hematocrit 34.3 % (40-54); Hemoglobin 10.8 g/dl (13.0-16.5); Lymphocyte # 2.15 X10^3/ul (4.0); Lymphocyte % 24.6 % (19-41); Mean Corp Hgb Conc 31.5 g/gl (32-36); Mean Corpuscular Hgb 27.6 pg (27.0-32.0); Mean Corpuscular Volume 87.5 fL (80-94); Mean Platelet Vol. 9.5 fl (6.2-12.0); Monocyte# 0.81 X10^3/uL; Monocyte% 9.3 % (0-10); Neutrophil # 5.51 X10^3/uL (2.7-7.7); Neutrophil % 62.9 % (47-70); Platelet Count 236 K/mm3 (150-450); RBC Distribution Width CV 15.9 % (11.6-14.6); RBC Distribution Width SD 50.3 fl (35.1-43.9); Red Blood Count 3.92 M/mm3 (4.6-6.2); White Blood Count 8.8 K/mm3 (4.4-11.0)
[2018-11-04 06:54] LABS: POSITIVE COUNT NO; POSITIVE DIFFERENTIAL NO; POSITIVE MORPHOLOGY NO
[2018-11-04] MEDS: Iron Polysaccharide Complex 150 MG CAPSULE PO (08:46)
[2018-11-04] MEDS: predniSONE 20 MG Tablet 10 MG PO (08:46)
[2018-11-04] MEDS: Insulin Lispro 100 UNIT/ML INSULN.PEN 7 UNIT SC ×3 (08:46→17:38)
[2018-11-04] MEDS: Tuberculin,Purif.prot.deriv. 50 TU/ML Vial 5 ML ID (11:34)
[2018-11-04 11:45] LABS: Bedside Glucose 162 mg/dL (70-110)
--- NOTE | 2018-11-04 12:13 | CPS ---
Pt tripoding on side of bed with accessory muscle use. Patients refusing bipap at this time, pt stated aerosol made him better.
--- NOTE | 2018-11-04 13:58 | CASEMGMT ---
Social Work Plan of care meeting held with pt and in attendance. Pt is receiving PT/OT and progressing well. Pt requesting to return home on Tuesday 11/07. Pt is agreeable and states pt dgt lives with them and is available during the day to assist as needed. Pt refusing home health services at this time. Pt does have DME needed including home O2. SW will continue to follow for d/c needs. SAMIA Wilson
[2018-11-04] MEDS: Tamsulosin HCl 0.4 MG Capsule 0.8 MG PO (16:59)
[2018-11-04 17:16] LABS: Bedside Glucose 206 mg/dL (70-110)
[2018-11-04 20:51] LABS: Bedside Glucose 449 mg/dL (70-110)
--- NOTE | 2018-11-04 21:35 | DCINST_ITS ---
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) Lung mass (Acute) Diabetes mellitus (Chronic) BPH (benign prostatic hyperplasia) (Chronic) Iron deficiency anemia (Chronic) Allergic rhinitis (Chronic) Insomnia (Chronic) Hypokalemia (Acute) You will use the following diet at home:: No restrictions, Regular Your food should be the consistency of: Regular Your liquids should be the consistency of: Regular/Thin Discharge Activity: Return to Normal Activity, May Shower, Use Walker Weight Bearing Status: Weight bearing as tolerated Call your doctor if you observe: Fever of 101 or Higher, Inability to urinate, Inability to have a bowel movement, Shortness of breath, Chest pain, Uncontrolled pain Allergies/Adverse Reactions: Allergies morphine Allergy (Verified 10/27/18 18:36) Other Medications to take at Discharge Fluticasone 0.05% [Flonase Nasal [place]] 1 spray NASAL 5X/DAY PRN 10/27/18 Loratadine 10 mg PO DAILY 10/27/18 Losartan Potassium 25 mg PO DAILY 10/27/18 Melatonin 3 mg PO QHS PRN 10/27/18 Metformin HCl 500 mg PO BID 10/27/18 Potassium Chloride [K-Dur] 20 meq PO BID 10/27/18 Tamsulosin HCl 0.4 mg PO DAILY 10/27/18 Acetaminophen [Tylenol] 1,000 mg PO Q6H PRN PRN tablet 11/04/18 Albuterol Aerosols [Ventolin Aerosols] 2.5 mg INHALATION Q4H PRN PRN #100 vial.neb. 11/04/18 Budesonide Aerosol [Pulmicort Respules] 0.5 mg INHALATION BID #100 ampul.neb. 11/04/18 Furosemide [Lasix] 40 mg PO BIDLX #60 tab 11/04/18 Insulin Glargine [Lantus SoloStar Pen] 15 units SUBCUT BID #1 pen 11/04/18 Insulin Lispro [Humalog KwikPen] 10 unit SUBCUT TIDAC #1 insuln.pen 11/04/18 Ipratropium/Albuterol Sulfate [Duoneb] 3 ml INHALATION Q4H.RT #100 ampul.neb 11/04/18 Iron Polysaccharide Complex [Ferrex 150] 150 mg PO DAILYCM #30 cap 11/04/18 Menthol/Lanolin/Calamine/Znox [Calmoseptine Ointment] 1 applic TOPICAL 0600,2200 tube 11/04/18 Mineral Oil/Petrolatum,White [Eucerin] 1 applic TOPICAL 0600,2200 jar 11/04/18 Nystatin Powder [Mycostatin Powder] 1 applic TOPICAL 0600,2200 bottle 11/04/18 Potassium Cloride Effervescent [Potassium Chl 25 Meq Eff (For Liquid)] 25 meq PO BIDCM #60 tablet.eff 11/04/18 The following prescriptions were given: Albuterol Aerosols [Ventolin Aerosols] 2.5 mg INHALATION Q4H PRN PRN #100 vial .neb. PRN Reason: Sob &/Or Wheezing Ipratropium/Albuterol Sulfate [Duoneb] 3 ml INHALATION Q4H.RT #100 ampul.neb Furosemide [Lasix] 40 mg PO BIDLX #60 tab Insulin Lispro [Humalog KwikPen] 10 unit SUBCUT TIDAC #1 insuln.pen Iron Polysaccharide Complex [Ferrex 150] 150 mg PO DAILYCM #30 cap Budesonide Aerosol [Pulmicort Respules] 0.5 mg INHALATION BID #100 ampul.neb. Insulin Glargine [Lantus SoloStar Pen] 15 units SUBCUT BID #1 pen Potassium Cloride Effervescent [Potassium Chl 25 Meq Eff (For Liquid)] 25 meq PO BIDCM #60 tablet.eff Primary Care Physician: Boyd Rodney DO [Primary Care Provider] - Please follow up with your Primary Care Physician in: 1 week. Test Results: Test results from this visit will be discussed in further detail at your follow- up appointment, if applicable. Proposed Discharge Date: 11/07/18
--- NOTE | 2018-11-04 21:37 | DS.PCM_ITS ---
Discharge Date and Diagnosis - Problem List Patient Problems: Active and Suspected Problems Debility (Acute) Acute respiratory failure (Acute) Dyspnea on exertion (Acute) Community acquired pneumonia (Acute) Congestive heart failure (Acute) Lung mass (Acute) Hypokalemia (Acute) Date of Admission: 10/27/18 Date of Discharge: 11/07/18 - Primary Discharge Diagnosis Active and Suspected Problems Debility (Acute) Acute respiratory failure (Acute) Dyspnea on exertion (Acute) Community acquired pneumonia (Acute) Congestive heart failure (Acute) Lung mass (Acute) Hypokalemia (Acute) - Secondary Discharge Diagnosis Chronic Problems Chronic obstructive pulmonary disease (Chronic) 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) Diabetes mellitus (Chronic) BPH (benign prostatic hyperplasia) (Chronic) Iron deficiency anemia (Chronic) Allergic rhinitis (Chronic) Insomnia (Chronic) Hospital Course and Treatment Imaging Results: 11/04/18 11:23 Diet: Regular Diet Is pt able to select menu?: Yes Labs (Last 48 Hours) 11/03/18 11/03/18 11/03/18 05:50 11:04 16:51 WBC RBC Hgb Hct MCV MCH MCHC RDW RDW Differential Plt Count MPV Immature Gran % (Auto) Neut % (Auto) Lymph % (Auto) [place] % (Auto) Eos % (Auto) Baso % (Auto) Absolute Neuts (auto) Absolute Lymphs (auto) Total Counted Sodium Potassium Chloride Carbon Dioxide Anion Gap BUN Creatinine Estim Creat Clear Calc Est GFR (MDRD) Af Amer Est GFR (MDRD) Non-Af BUN/Creatinine Ratio Glucose Calcium POC Glucose 147 H 153 H 346 H 11/03/18 11/04/18 11/04/18 20:52 05:40 05:40 WBC 8.8 RBC 3.92 L Hgb 10.8 L Hct 34.3 L MCV 87.5 MCH 27.6 MCHC 31.5 L RDW 15.9 H RDW Differential 50.3 H Plt Count 236 MPV 9.5 Immature Gran % (Auto) 0.500 Neut % (Auto) 62.9 Lymph % (Auto) 24.6 [place] % (Auto) 9.3 Eos % (Auto) 2.5 Baso % (Auto) 0.2 Absolute Neuts (auto) 5.5 Absolute Lymphs (auto) 2.15 Total Counted Not Reportable Sodium 133 L Potassium 4.3 Chloride 92 L Carbon Dioxide 38.0 H Anion Gap 3 L BUN 23 H Creatinine 0.69 L Estim Creat Clear Calc 49.69 Est GFR (MDRD) Af Amer 144 Est GFR (MDRD) Non-Af 119 BUN/Creatinine Ratio 33.4 H Glucose 116 H Calcium 8.7 POC Glucose 254 H 11/04/18 11/04/18 11/04/18 06:09 11:28 17:05 WBC RBC Hgb Hct MCV MCH MCHC RDW RDW Differential Plt Count MPV Immature Gran % (Auto) Neut % (Auto) Lymph % (Auto) [place] % (Auto) Eos % (Auto) Baso % (Auto) Absolute Neuts (auto) Absolute Lymphs (auto) Total Counted Sodium Potassium Chloride Carbon Dioxide Anion Gap BUN Creatinine Estim Creat Clear Calc Est GFR (MDRD) Af Amer Est GFR (MDRD) Non-Af BUN/Creatinine Ratio Glucose Calcium POC Glucose 127 H 162 H 206 H 11/04/18 20:38 WBC RBC Hgb Hct MCV MCH MCHC RDW RDW Differential Plt Count MPV Immature Gran % (Auto) Neut % (Auto) Lymph % (Auto) [place] % (Auto) Eos % (Auto) Baso % (Auto) Absolute Neuts (auto) Absolute Lymphs (auto) Total Counted Sodium Potassium Chloride Carbon Dioxide Anion Gap BUN Creatinine Estim Creat Clear Calc Est GFR (MDRD) Af Amer Est GFR (MDRD) Non-Af BUN/Creatinine Ratio Glucose Calcium POC Glucose 449 H Operations: None Procedures: None Summary of Care Provided: The patient is a 78 year old Male with below past medical history hospitalized for acute respiratory failure secondary to community acquired pneumonia, COPD, congestive heart failure, complicated by right middle lobe lung mass, admitted to TCU with debility, here for rehabilitation, strengthening, prior to discharge home with spouse. On TCU, repeat CT chest showed resolution of right middle lobe mass. Discharge home with spouse, daughter, resident declined Home Health Services. Patient Problems: Active and Suspected Problems Debility (Acute) Acute respiratory failure (Acute) Dyspnea on exertion (Acute) Community acquired pneumonia (Acute) Congestive heart failure (Acute) Lung mass (Acute) Hypokalemia (Acute) - Physical Exam Vital Signs Temp Pulse Resp BP Pulse Ox 98.0 F 117 H 22 H 100/48 L 96 11/04/18 16:00 11/04/18 19:53 11/04/18 19:53 11/04/18 16:00 11/04/18 16:00 Oxygen Flow Rate (L/min) 3 Oxygen Delivery Method Nasal Cannula Weight: 55.905 kg Body Mass Index (BMI) 19.5 Intake and Output for Last 24 Hours 11/02/18 11/03/18 11/04/18 23:59 23:59 23:59 Intake Total 1120 / 1120 1140 / 1140 920 / 920 Output Total 700 / 700 950 / 950 1150 / 1150 Balance 420 / 420 190 / 190 -230 / -230 Laboratory Tests Past 24 Hrs 11/04/18 11/04/18 05:40 05:40 WBC 8.8 RBC 3.92 L Hgb 10.8 L Hct 34.3 L MCV 87.5 MCH 27.6 MCHC 31.5 L RDW 15.9 H RDW Differential 50.3 H Plt Count 236 MPV 9.5 Immature Gran % (Auto) 0.500 Neut % (Auto) 62.9 Lymph % (Auto) 24.6 [place] % (Auto) 9.3 Eos % (Auto) 2.5 Baso % (Auto) 0.2 Absolute Neuts (auto) 5.5 Absolute Lymphs (auto) 2.15 Total Counted Not Reportable Sodium 133 L Potassium 4.3 Chloride 92 L Carbon Dioxide 38.0 H Anion Gap 3 L BUN 23 H Creatinine 0.69 L Estim Creat Clear Calc 49.69 Est GFR (MDRD) Af Amer 144 Est GFR (MDRD) Non-Af 119 BUN/Creatinine Ratio 33.4 H Glucose 116 H Calcium 8.7 POC Glucose 11/04/18 11/04/18 11/04/18 20:38 17:05 11:28 POC Glucose 449 H 206 H 162 H 11/04/18 06:09 POC Glucose 127 H Discharge Diet: No Restrictions Discharge Activity: Return to Normal Activity, May Shower, Use Walker Weight Bearing Status: Weight bearing as tolerated Call your doctor if you observe: Fever of 101 or Higher, Inability to urinate, Inability to have a bowel movement, Shortness of breath, Chest pain, U ncontrolled pain Home Medications: Medications to take at Discharge Fluticasone 0.05% [Flonase Nasal [place]] 1 spray NASAL 5X/DAY PRN 10/27/18 Loratadine 10 mg PO DAILY 10/27/18 Losartan Potassium 25 mg PO DAILY 10/27/18 Melatonin 3 mg PO QHS PRN 10/27/18 Metformin HCl 500 mg PO BID 10/27/18 Potassium Chloride [K-Dur] 20 meq PO BID 10/27/18 Tamsulosin HCl 0.4 mg PO DAILY 10/27/18 Acetaminophen [Tylenol] 1,000 mg PO Q6H PRN PRN tablet 11/04/18 Albuterol Aerosols [Ventolin Aerosols] 2.5 mg INHALATION Q4H PRN PRN #100 vial.neb. 11/04/18 Budesonide Aerosol [Pulmicort Respules] 0.5 mg INHALATION BID #100 ampul.neb. 11/04/18 Furosemide [Lasix] 40 mg PO BIDLX #60 tab 11/04/18 Insulin Glargine [Lantus SoloStar Pen] 15 units SUBCUT BID #1 pen 11/04/18 Insulin Lispro [Humalog KwikPen] 10 unit SUBCUT TIDAC #1 insuln.pen 11/04/18 Ipratropium/Albuterol Sulfate [Duoneb] 3 ml INHALATION Q4H.RT #100 ampul.neb 11/04/18 Iron Polysaccharide Complex [Ferrex 150] 150 mg PO DAILYCM #30 cap 11/04/18 Menthol/Lanolin/Calamine/Znox [Calmoseptine Ointment] 1 applic TOPICAL 0600,2200 tube 11/04/18 Mineral Oil/Petrolatum,White [Eucerin] 1 applic TOPICAL 0600,2200 jar 11/04/18 Nystatin Powder [Mycostatin Powder] 1 applic TOPICAL 0600,2200 bottle 11/04/18 Potassium Cloride Effervescent [Potassium Chl 25 Meq Eff (For Liquid)] 25 meq PO BIDCM #60 tablet.eff 11/04/18 Following Prescrptions Were Given to Patient: Albuterol Aerosols [Ventolin Aerosols] 2.5 mg INHALATION Q4H PRN PRN #100 vial.neb. PRN Reason: Sob &/Or Wheezing Ipratropium/Albuterol Sulfate [Duoneb] 3 ml INHALATION Q4H.RT #100 ampul.neb Furosemide [Lasix] 40 mg PO BIDLX #60 tab Insulin Lispro [Humalog KwikPen] 10 unit SUBCUT TIDAC #1 insuln.pen Iron Polysaccharide Complex [Ferrex 150] 150 mg PO DAILYCM #30 cap Budesonide Aerosol [Pulmicort Respules] 0.5 mg INHALATION BID #100 ampul.neb. Insulin Glargine [Lantus SoloStar Pen] 15 units SUBCUT BID #1 pen Potassium Cloride Effervescent [Potassium Chl 25 Meq Eff (For Liquid)] 25 meq PO BIDCM #60 tablet.eff Primary Care Physician: Boyd Rodney DO [Primary Care Provider] - Please follow up with your Primary Care Physician in: 1 week. Disposition: Home Minutes spent on discharge:: 30 Patient Condition:: Stable Medical Necessity - Tobacco Use Smoking Status: Former smoker Tobacco Use: Non-smoker Meaningful Use Info Meaningful Use Diagnoses (Choose all that apply): None applicable
[2018-11-04] MEDS: MELATONIN 3 MG TABLET PO (22:05)
[2018-11-05] VITALS (7 sets, daily range): BP systolic 107; BP diastolic 60; PULSE 85–100; RESP 12–30; TEMP 36.9; O2SAT 94–100
[2018-11-05] MEDS: Enoxaparin 40 MG/0.4 ML Syringe SC (05:51)
[2018-11-05] MEDS: Glucerna Shake 120 ML LIQUID PO ×4 (05:51→20:59)
[2018-11-05] MEDS: Senna/Docusate Sodium 1 Tablet PO ×2 (05:52→17:42)
[2018-11-05] MEDS: Polyethylene Glycol 3350 17 GM PACKET PO (05:52)
[2018-11-05] MEDS: Furosemide 40 MG Tablet PO ×2 (05:52→14:09)
[2018-11-05] MEDS: Losartan Potassium 25 MG Tablet PO (05:52)
[2018-11-05] MEDS: Loratadine 10 MG Tablet PO (05:52)
[2018-11-05] MEDS: Fluticasone 0.05% 1 SPRAY NASAL.SRY NASAL ×4 (05:53→20:59)
[2018-11-05] MEDS: Nystatin Powder 15gm Bottle 1 APPLIC TOPICAL ×2 (05:54→21:01)
[2018-11-05] MEDS: Menthol/Lanolin/Calamine/Znox 113 GM Tube 1 APPLIC TOPICAL ×2 (05:55→21:00)
[2018-11-05 07:06] LABS: Bedside Glucose 179 mg/dL (70-110)
[2018-11-05] MEDS: Ipratropium/Albuterol Sulfate 3 ML AMPUL.NEB INHALATION ×4 (07:37→22:49)
[2018-11-05] MEDS: Insulin Lispro 100 UNIT/ML INSULN.PEN 10 UNIT SC ×3 (08:23→17:38)
[2018-11-05] MEDS: Iron Polysaccharide Complex 150 MG CAPSULE PO (08:24)
[2018-11-05] MEDS: predniSONE 20 MG Tablet 10 MG PO (08:24)
[2018-11-05 11:00] LABS: Bedside Glucose 117 mg/dL (70-110)
--- NOTE | 2018-11-05 13:52 | CASEMGMT ---
Social Work SW met with pt and pt is agreeable to d/c home on 11/07/18. Pt confirms he does not want home health services at this time and has needed oxygen supplies and DME. Pt will transport pt home and dgt will be available to assist pt as needed. No further SW needs. Plan: D/C home with family 11/07/18 SAMIA Wilson
--- NOTE | 2018-11-05 15:10 | CASEMGMT ---
Student Social Work MDS documentation reviewed. SAMIA Wilson
[2018-11-05 16:56] LABS: Bedside Glucose 299 mg/dL (70-110)
[2018-11-05] MEDS: Tamsulosin HCl 0.4 MG Capsule 0.8 MG PO (17:42)
[2018-11-05 21:26] LABS: Bedside Glucose 138 mg/dL (70-110)
[2018-11-05] MEDS: MELATONIN 3 MG TABLET PO (22:54)
[2018-11-06 02:11] LABS: Bedside Glucose 52 mg/dL (70-110)
--- NOTE | 2018-11-06 02:34 | NURSING ---
Pt blood sugar 52. Pt asymptomatic. OJ and cookies provided. Blood sugar recheck 99. Will update Dr. Rankin in the AM.
[2018-11-06] MEDS: Albuterol 2.5 MG/3 ML VIAL.NEB. INHALATION (02:35)
[2018-11-06 02:36] LABS: Bedside Glucose 99 mg/dL (70-110)
[2018-11-06 02:47] VITALS: PULSE 98; RESP 18
[2018-11-06 04:06] LABS: Bedside Glucose 224 mg/dL (70-110)
[2018-11-06] MEDS: Polyethylene Glycol 3350 17 GM PACKET PO (06:08)
[2018-11-06] MEDS: Losartan Potassium 25 MG Tablet PO (06:13)
[2018-11-06] MEDS: Fluticasone 0.05% 1 SPRAY NASAL.SRY NASAL ×4 (06:13→21:36)
[2018-11-06] MEDS: Furosemide 40 MG Tablet PO ×2 (06:13→13:01)
[2018-11-06] MEDS: Senna/Docusate Sodium 1 Tablet PO ×2 (06:13→17:06)
[2018-11-06] MEDS: Enoxaparin 40 MG/0.4 ML Syringe SC (06:13)
[2018-11-06] MEDS: Loratadine 10 MG Tablet PO (06:13)
[2018-11-06] MEDS: Menthol/Lanolin/Calamine/Znox 113 GM Tube 1 APPLIC TOPICAL ×2 (06:17→21:37)
[2018-11-06] MEDS: Nystatin Powder 15gm Bottle 1 APPLIC TOPICAL ×2 (06:17→21:36)
[2018-11-06] MEDS: Glucerna Shake 120 ML LIQUID PO ×4 (06:17→21:36)
[2018-11-06 06:21] LABS: Bedside Glucose 204 mg/dL (70-110)
[2018-11-06 06:50] VITALS: PULSE 96; RESP 20; O2SAT 97
[2018-11-06] MEDS: Ipratropium/Albuterol Sulfate 3 ML AMPUL.NEB INHALATION ×3 (06:50→23:14)
[2018-11-06] MEDS: Insulin Lispro 100 UNIT/ML INSULN.PEN 10 UNIT SC (08:08)
[2018-11-06] MEDS: Iron Polysaccharide Complex 150 MG CAPSULE PO (08:09)
[2018-11-06 10:30] VITALS: PULSE 89; RESP 20
[2018-11-06 11:15] LABS: Bedside Glucose 89 mg/dL (70-110)
--- NOTE | 2018-11-06 14:26 | MDS.RN ---
Information for the mds was obtained from review of the clinical record, interview of resident, staff, and direct observation of resident's care.
[2018-11-06 14:40] VITALS: PULSE 85; RESP 20
--- NOTE | 2018-11-06 14:54 | NURSING ---
BLOOD SUGAR 89 AT LUNCH. [facility] UPDATED [facility]. JACKSON. NO N.O.
[2018-11-06 16:00] VITALS: BP 103/47; PULSE 93; RESP 18; TEMP 36.9; O2SAT 98
[2018-11-06] MEDS: Insulin Lispro 100 UNIT/ML INSULN.PEN 7 UNIT SC (17:05)
[2018-11-06] MEDS: Tamsulosin HCl 0.4 MG Capsule 0.8 MG PO (17:06)
[2018-11-06 17:16] LABS: Bedside Glucose 328 mg/dL (70-110)
[2018-11-06 21:46] LABS: Bedside Glucose 147 mg/dL (70-110)
[2018-11-06 23:13] VITALS: PULSE 90; RESP 20
[2018-11-07 04:20] VITALS: PULSE 107; RESP 20
[2018-11-07] MEDS: Ipratropium/Albuterol Sulfate 3 ML AMPUL.NEB INHALATION ×2 (04:20→06:45)
[2018-11-07] MEDS: Glucerna Shake 120 ML LIQUID PO (04:57)
[2018-11-07] MEDS: Loratadine 10 MG Tablet PO (04:57)
[2018-11-07] MEDS: Senna/Docusate Sodium 1 Tablet PO (04:57)
[2018-11-07] MEDS: Polyethylene Glycol 3350 17 GM PACKET PO (04:57)
[2018-11-07] MEDS: Losartan Potassium 25 MG Tablet PO (04:57)
[2018-11-07] MEDS: Enoxaparin 40 MG/0.4 ML Syringe SC (04:59)
[2018-11-07] MEDS: Furosemide 40 MG Tablet PO (04:59)
[2018-11-07] MEDS: Fluticasone 0.05% 1 SPRAY NASAL.SRY NASAL (04:59)
[2018-11-07] MEDS: Nystatin Powder 15gm Bottle 1 APPLIC TOPICAL (05:01)
[2018-11-07] MEDS: Menthol/Lanolin/Calamine/Znox 113 GM Tube 1 APPLIC TOPICAL (05:01)
[2018-11-07 06:21] LABS: Bedside Glucose 250 mg/dL (70-110)
[2018-11-07 06:45] VITALS: PULSE 98; RESP 21; O2SAT 97
[2018-11-07] MEDS: Iron Polysaccharide Complex 150 MG CAPSULE PO (07:57)
[2018-11-07] MEDS: Insulin Lispro 100 UNIT/ML INSULN.PEN 7 UNIT SC (07:57)
== END 2018-11-07 10:15 | disposition home or self-care (01) | DRG 948 ==
PROVIDERS: Admitting Provider Family Medicine Geriatric Medicine; Family Provider Family Medicine; PCP Family Medicine; Referring Provider Family Medicine Geriatric Medicine; Visit Provider Family Medicine Geriatric Medicine
DX: R53.81 Other malaise (principal); J44.9 Chronic obstructive pulmonary disease, unspecified; D50.9 Iron deficiency anemia, unspecified; N40.0 Benign prostatic hyperplasia without lower urinary tract symptoms; E11.9 Type 2 diabetes mellitus without complications; R91.8 Other nonspecific abnormal finding of lung field; E87.6 Hypokalemia; I50.9 Heart failure, unspecified; Z87.891 Personal history of nicotine dependence; Z57.4 Occupational exposure to toxic agents in agriculture
CPT/HCPCS: 36415; 80048; 82962; 85025; 94002; 94003; 94640; 97110; 97116; 97162; 97166; 97530; 97535; 97802; A4216

== ENCOUNTER → 2018-10-28 06:32 | Outpatient (CLI) | payer MEDICARE, SELFPAY ==
[2018-10-27 18:32] VITALS: BMI 19.5
--- NOTE | 2018-10-28 06:35 | CT_ITS ---
STUDY: CT CHEST WITH CONTRAST REASON FOR EXAM: Male, 78 years old. Right middle lobe mass RADIATION DOSAGE (If Supplied By Facility): CTDIvol = ( 8.78 ) mGy, DLP = ( 331.83 ) mGycm TECHNIQUE: Transaxial imaging was performed following intravenous administration of 100 IV Isovue 300. Individualized dose optimization techniques were used for this CT. COMPARISON: None. FINDINGS: There is hyperinflation of the lungs consistent with chronic obstructive lung disease (COPD). Emphysematous changes are noted in both lungs more prominent in the upper lobes predominantly centrilobular type. Elongated opacities are seen in the right middle lobe are consistent with subsegmental atelectasis. There is associated bronchiectasis in the right middle lobe. There is no demonstrated pleural abnormality. Normal heart and pericardium. Normal mediastinum. Normal hilar regions. Normal enhanced pulmonary arteries. Normal aorta arch and descending thoracic aorta. Normal osseous structures. There is a right renal cyst measures 7.[address]/Chest WITH Contrast IMPRESSION: COPD and emphysema in both lungs. Scarring in the right middle lobe. There is no evidence of pneumonia or neoplasm. Electronically Signed: Adan Bar, at 8:17 EDT Tel , Service support ,
== END ==
PROVIDERS: Family Provider Family Medicine; PCP Family Medicine; Referring Provider Family Medicine Geriatric Medicine; Visit Provider Family Medicine Geriatric Medicine
DX: R91.8 Other nonspecific abnormal finding of lung field (principal)
CPT/HCPCS: 71260

== ENCOUNTER 2018-12-15 10:23 | Inpatient (IN) | payer MEDICARE, OTHER, SELFPAY ==
[2018-12-15] VITALS (29 sets, daily range): BP systolic 95–139; BP diastolic 54–77; PULSE 99–118; RESP 12–32; TEMP 36.3–37.4; O2SAT 87–100; BMI 18.3; BMI 18.0
--- NOTE | 2018-12-15 10:44 | EKG12_ITS ---
Test Reason : SOB Blood Pressure : / mmHG Vent. Rate : 116 BPM Atrial Rate : 116 BPM P-R Int : 126 ms QRS Dur : 098 ms QT Int : 328 ms P-R-T Axes : 082 081 041 degrees QTc Int : 455 ms Sinus tachycardia with frequent Premature ventricular complexes in a pattern of bigeminy Otherwise normal ECG Confirmed by OC GARCES ([id number]), editor trade journal ELENITA MOLINA ([id number]) on 12/21/2018 3:39:36 PM Referred By: Amy Lal Confirmed By:OC GARCES
--- NOTE | 2018-12-15 10:45 | RAD_ITS ---
STUDY: X-RAY CHEST REASON FOR EXAM: Male, 78 years old. Shortness of breath. COPD. TECHNIQUE: Single AP portable view of the chest. COMPARISON: None. FINDINGS: EKG electrodes are seen. There is dense consolidation in the right midlung and right lower lobe with the right pleural effusion. The left lung is clear. Normal size heart. Normal mediastinum and eddie. Normal visualized pulmonary arteries. There is atherosclerotic calcification of the aortic arch with tortuosity. There are diffuse degenerative changes of the visualized thoracic spine. Normal visualized ribs, clavicles, and shoulders. There is no demonstrated abnormality of the visualized soft tissue structures of the upper abdomen. RAD/Chest 1 View (Portable) IMPRESSION: Dense consolidation in the right midlung and right lower lobe with a right pleural effusion. Electronically Signed: Ren Adam, at 11:26 EDT , Service support ,
--- NOTE | 2018-12-15 10:50 | ED.RN ---
PT CONTINUES TO BE TACHEPNIC, CPS AWARE FOR ORDERS AND PT ON 10L NRB TO EVALUATE.
[2018-12-15 10:59] LABS: Absolute Lymphocyte Count 0.55 X10^3/ul (0.83-4.51); Absolute Neutrophil Count 23.4 X10^3/uL (2.0-7.7); Basophil# 0.02 X10^3/uL; Basophil% 0.1 % (0-1); Hematocrit 35.4 % (40-54); Hemoglobin 11.5 g/dl (13.0-16.5); Lymphocyte # 0.55 X10^3/ul (4.0); Lymphocyte % 2.2 % (19-41); Mean Corp Hgb Conc 32.5 g/gl (32-36); Mean Corpuscular Volume 86.1 fL (80-94); Mean Platelet Vol. 9.3 fl (6.2-12.0); Monocyte# 0.72 X10^3/uL; Monocyte% 2.9 % (0-10); Neutrophil # 23.41 X10^3/uL (2.7-7.7); Neutrophil % 94.4 % (47-70); Platelet Count 208 K/mm3 (150-450); RBC Distribution Width CV 15.6 % (11.6-14.6); RBC Distribution Width SD 49.7 fl (35.1-43.9); Red Blood Count 4.11 M/mm3 (4.6-6.2); White Blood Count 24.8 K/mm3 (4.4-11.0)
[2018-12-15] MEDS: Ipratropium/Albuterol Sulfate 3 ML AMPUL.NEB INHALATION ×3 (11:00→22:43)
[2018-12-15 11:01] LABS: Differential Indicated SCAN CRITERIA MET; POSITIVE COUNT NO; POSITIVE DIFFERENTIAL YES; POSITIVE MORPHOLOGY NO
[2018-12-15 11:13] LABS: Lactic Acid 1.6 mmol/L (0.4-2.0)
[2018-12-15 11:16] LABS: Anion Gap 7 (5-15); BUN 27 mg/dL (7-18); BUN/Creat Ratio 31.8 RATIO (10-20); Calcium,Total 9.1 mg/dL (8.5-10.1); Chloride 94 mmol/L (98-107); Creatinine, Serum 0.85 mg/dL (0.70-1.30); EST Glomerular Filtration Rate 93 mL/min (>60); Est Glom Filt Rate - Afr Amer 113 mL/min (>60); Estimated Creatinine Clearance 60.65 ml/min; Glucose 163 mg/dL (74-106); Potassium 3.8 mmol/L (3.5-5.1); Sodium Level 133 mmol/L (136-145)
[2018-12-15 11:16] LABS: Allen Test POS; Base Excess 5 mmol/L (-2 to +2); Bicarbonate 31.6 mmol/L (22-26); Blood Gas Specimen Type ART; O2 Delivery Device NRB Mask; PO2 70 mmHG (75-100); SITE L Radial; SO2 91 % (95-99); Time Given 1108; Total Carbon Dioxide 34 mmol/L; pCO2 64.7 mmHg (35-45)
--- NOTE | 2018-12-15 11:20 | ED.RN ---
ORAL CARE DONE. PLACED ON BIPAP.
[2018-12-15] MEDS: levoFLOXacin IV 750 MG/150 ML BAG 100 MG IV (12:59)
--- NOTE | 2018-12-15 14:12 | ED.RN ---
SPOKE WITH ALEX AT THE [facility]. SHE STATED TO DO WHAT IS IN THE BEST INTEREST OF THE PT. SHE TOOK THE PTS INFORMATION AND IS SUBMITTING IT TO THEIR INTAKE DEPARTMENT. THEY WILL CONTACT US AND LET US KNOW IF THEY FEEL A TRANSFER TO THEIR FACILITY IS NEEDED.
--- NOTE | 2018-12-15 14:25 | ED.VISSUMM ---
- ER Visit Summary Date of Service: 12/15/18 Chief Complaint: Shortness of breath History of Present Illness: The patient is a 78 M who presents with shortness of breath that has been getting worse over the past 4 days. Patient states she is coughing up some yellow sputum. Patient states this feels similar to prior episodes of pneumonia. Patient states he has been seen at the [facility] in the past for this pneumonia. Patient denies any fevers or chills. Patient denies any chest pain. Patient states his breathing is worse with any exertion. Patient does admit to a headache. Physical Examination: Vital signs are stable. Patient is afebrile here. Patient has a mild tachycardia of 110. Patient is in no acute distress. Oral mucosa is pink and moist. Neck is supple. Trachea is midline. Heart was regular and tachycardic. Lungs are diminished bilaterally. There is good respiratory effort noted. Abdomen is soft. Bowel sounds are normal. There is no tenderness. Cranial nerves II through XII are intact. There are no focal motor or sensory deficit noted. Test Results: EKG showed sinus tachycardia with a rate of 116. There were frequent PVCs noted. There are no acute ST or T wave changes. CBC showed a leukocytosis of 24.8. Hemoglobin was 11.5 and hematocrit 35.4. Basic metabolic profile was essentially within normal limits. Portable chest x-ray shows a large consolidated right lower lobe infiltrate. ABG on nonrebreather mask showed a pH of 7.29, PCO2 of 64.7, PO2 of 70, bicarb 31.6, and oxygen saturation of 91%. Emergency Department Course and Treatment: Patient was given a DuoNeb aerosol here. Patient was started on BiPAP. Patient was feeling better after this. Patient was started on Levaquin. Patient requested to go to the [facility] in late part for admission. They were contacted and there are no beds available at this time. They recommended doing what in the best interest of the patient and they will contact their patient project manager process development. Case was discussed with the hospitalist here. He will admit the patient to the hospital here. Disposition: Admit to hospital Impression: Healthcare associated pneumonia This note was generated with [employer] dictation software. It may contain incorrect words, spelling, and punctuation that were not noted in review of the chart prior to signing ED Disposition - Plan for ED Patient: Disposition: Acute Care Hospital [facility] Diagnosis: Healthcare-associated pneumonia Referrals: Boyd Rodney DO [Primary Care Provider] -
--- NOTE | 2018-12-15 14:29 | ED.DCSUM_ITS ---
- ER Visit Summary Date of Service: 12/15/18 Chief Complaint: Shortness of breath History of Present Illness: The patient is a 78 M who presents with shortness of breath that has been getting worse over the past 4 days. Patient states she is coughing up some yellow sputum. Patient states this feels similar to prior episodes of pneumonia. Patient states he has been seen at the [facility] in the past for this pneumonia. Patient denies any fevers or chills. Patient denies any chest pain. Patient states his breathing is worse with any exertion. Patient does admit to a headache. Physical Examination: Vital signs are stable. Patient is afebrile here. Patient has a mild tachycardia of 110. Patient is in no acute distress. Oral mucosa is pink and moist. Neck is supple. Trachea is midline. Heart was regular and tachycardic. Lungs are diminished bilaterally. There is good respiratory effort noted. Abdomen is soft. Bowel sounds are normal. There is no tenderness. Cranial nerves II through XII are intact. There are no focal motor or sensory deficit noted. Test Results: EKG showed sinus tachycardia with a rate of 116. There were frequent PVCs noted. There are no acute ST or T wave changes. CBC showed a leukocytosis of 24.8. Hemoglobin was 11.5 and hematocrit 35.4. Basic metabolic profile was essentially within normal limits. Portable chest x-ray shows a large consolidated right lower lobe infiltrate. ABG on nonrebreather mask showed a pH of 7.29, PCO2 of 64.7, PO2 of 70, bicarb 31.6, and oxygen saturation of 91%. Emergency Department Course and Treatment: Patient was given a DuoNeb aerosol here. Patient was started on BiPAP. Patient was feeling better after this. Patient was started on Levaquin. Patient requested to go to the [facility] in late part for admission. They were contacted and there are no beds available at this time. They recommended doing what in the best interest of the patient and they will contact their patient validation manager. Case was discussed with the hospitalist here. He will admit the patient to the hospital here. Disposition: Admit to hospital Impression: Healthcare associated pneumonia This note was generated with [employer] dictation software. It may contain incorrect words, spelling, and punctuation that were not noted in review of the chart prior to signing ED Disposition - Plan for ED Patient: Disposition: Acute Care Hospital [facility] Diagnosis: Healthcare-associated pneumonia Referrals: Boyd Rodney DO [Primary Care Provider] -
--- NOTE | 2018-12-15 14:41 | PCM.HP.STD ---
Problem List (1) Chronic obstructive pulmonary disease Status: Chronic (2) Diabetes mellitus Status: Chronic (3) BPH (benign prostatic hyperplasia) Status: Chronic (4) Iron deficiency anemia Status: Chronic (5) Allergic rhinitis Status: Chronic (6) Insomnia Status: Chronic (7) Healthcare-associated pneumonia Status: Acute History of Present Illness Date of Admission: 12/15/18 Chief Complaint: Shortness of breath. The patient is a 78 year old M with past medical history as mentioned above presented to the medicine because of worsening shortness of breath. Symptoms started around 4 to 5 days ago with shortness of breath that has been progressive, initially was with moderate exertion and since yesterday, it has been even at rest, associated with productive cough with small amount of yellow sputum and without aggravating or relieving factors. He denied fever or chills. He denies chest pain, palpitation, dizziness or lightheadedness. He was admitted to the inpatient rehabilitation unit in this hospital on October 27, 2018 after he suffered pneumonia for which she was admitted at the [facility] and he was discharged from the rehabilitation unit on November 04, 2018. Apparently, after that pneumonia there was a concern that he may have lung mass. He had CT scan chest with contrast on October 28, 2018 that revealed changes consistent with COPD and emphysema as well as scarring of the right middle lobe, there was no pneumonia or neoplasm. Today in the emergency department, patient was afebrile, tachycardic, blood pressure was stable, tachypneic and his pulse ox was 87% on 5 L upon arrival. His routine blood work was remarkable for leukocytosis, chronic anemia with stable hemoglobin, sodium of 133, otherwise unremarkable. EKG revealed sinus tachycardia with PACs, no acute ischemic changes. Troponin is negative. Chest x-ray revealed right mid and lower lung consolidation with right pleural effusion. Initially, the plan was to transfer the patient back to [facility] and according to the ED physician, [facility] has no beds at this time. She is being admitted for right lung healthcare associated pneumonia with sepsis complicated by acute on chronic hypoxic and hypercapnic respiratory failure with mild respiratory acidosis. 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) Diabetes mellitus (Chronic) BPH (benign prostatic hyperplasia) (Chronic) Iron deficiency anemia (Chronic) Allergic rhinitis (Chronic) Insomnia (Chronic) Allergies morphine Allergy (Verified 10/27/18 18:36) Other Home Medications: Ambulatory Orders Medication Instructions Recorded Fluticasone 0.05% [Flonase Nasal 1 spray NASAL 5X/DAY PRN 10/27/18 [place]] Losartan Potassium 25 mg PO DAILY 10/27/18 Melatonin 3 mg PO QHS PRN 10/27/18 Potassium Chloride [K-Dur] 20 meq PO PRN PRN 10/27/18 Acetaminophen [Tylenol] 1,000 mg PO Q6H PRN PRN tablet 11/04/18 Albuterol Aerosols [Ventolin 2.5 mg INHALATION Q4H PRN PRN #100 11/04/18 Aerosols] vial.neb. Budesonide Aerosol [Pulmicort 0.5 mg INHALATION BID #100 11/04/18 Respules] ampul.neb. Insulin Glargine [Lantus SoloStar 15 units SUBCUT BID #1 pen 11/04/18 Pen] Insulin Lispro [Humalog KwikPen] 10 unit SUBCUT TIDAC #1 insuln.pen 11/04/18 Ipratropium/Albuterol Sulfate 3 ml INHALATION Q4H.RT #100 11/04/18 [Duoneb] ampul.neb Iron Polysaccharide Complex 150 mg PO DAILYCM #30 cap 11/04/18 [Ferrex 150] Menthol/Lanolin/Calamine/Znox 1 applic TOPICAL 0600,2200 tube 11/04/18 [Calmoseptine Ointment] Budesonide/Formoterol 160/4.5 2 puff INHALATION BID 12/15/18 [Symbicort 160/4.5 Mcg Inhaler (SP)] Docusate Sodium 100 mg PO BID 12/15/18 Furosemide [Lasix] 40 mg PO PRN PRN 12/15/18 Glipizide 10 mg PO BIDCM 12/15/18 Guaifenesin 400 mg PO PRN PRN 12/15/18 Terazosin HCl 10 mg PO DAILY 12/15/18 traMADol [Ultram (G)] 50 mg PO BID PRN PRN 12/15/18 Surgical History: - - Needle biopsy of lung, Soper filter. Psychiatric History: No pertinent psych hx Lives: Spouse/ Significant Other Smoking Status: Former smoker Alcohol: None Drugs: None - *Family History Maternal History Items: No pertinent history Paternal History Items: No pertinent history Review of Systems Constitutional: Denies: Anorexia, Chills, Fever, Weakness Eyes: Denies: Blurred vision, Double vision, Drainage, Redness HEENT: Denies: Difficulty Hearing, Ear Pain, Eye Pain, Nasal Congestion, Sore Throat Cardiovascular: Denies: Chest Pain, Chest Pressure, Edema, Heaviness, Palpitations, Syncope Respiratory: Reports: Cough, Shortness of Breath, Shortness of breath at rest, Sputum production, Wheezing Gastrointestinal: Denies: Abdominal Pain, Constipation, Diarrhea, Nausea, Vomiting Genitourinary: Denies: Dysuria, Frequency, Hematuria Musculoskeletal: Denies: Arm Pain, Back Pain, Foot Pain Skin: Denies: Dryness, Rash Neurological: Denies: Balance problems, Double vision, Change in Speech, Slurred speech, Confusion, Headaches, Incoordination, Numbness Psychiatric: Denies: Anxiety, Depression Endocrine: Denies: Change in Body Habitus, Polydipsia VTE Information - Inpt Only VTE Present on Admission: No VTE Mechan Device Prophylaxis: None VTE Pharm Prophylaxis ordered?: Yes Patient Problems: Active and Suspected Problems Healthcare-associated pneumonia (Acute) - Physical Exam General: Alert, Oriented x3, Cooperative, - - In moderate respiratory distress. HEENT: Atraumatic, PERRLA, EOMI, Normocephalic Oral: Moist Mucosa, No Gingival or Mucosal Lesions/ Ulcerations Neck: Supple, No JVD, Negative Carotid Bruits, Trachea Midline, Thyroid Normal Size and Texture Lungs: Diminished, Rhonchi, Short of Breath, Wheezes, - - Decreased breath sounds bilateral, markedly decreased breath sounds on the right base, expiratory wheezes, rhonchi. Cardiovascular: Regular rate, Regular Rhythm, Normal S1, Normal S2, PMI Normal, Tachycardic Abdomen: Bowel Sounds Present, Soft, Non Tender, Non-Distended, No Hepato-splenomegaly Extremities: No clubbing, No cyanosis, No edema Skin: No rashes, No breakdown Lymphatic: No Cervical, Supraclavicular, or Inguinal Adenopathy Neurological: Cranial nerves II-XII grossly intact, Motor Exam 5/5 strength throughout Psych/Mental Status: Normal Affect, Appropriate, Alert and oriented to time, place, person, mood and affect Vital Signs Temp Pulse Resp BP Pulse Ox 97.6 F L 108 H 25 H 119/61 100 12/15/18 13:03 12/15/18 13:03 12/15/18 13:03 12/15/18 13:03 12/15/18 13:03 Oxygen Flow Rate (L/min) 10 Oxygen Delivery Method Bi-pap Weight: 127 lb 13.89 oz Body Mass Index (BMI) 18.3 Laboratory Tests Past 24 Hrs 12/15/18 12/15/18 12/15/18 10:44 10:44 10:44 WBC 24.8 H RBC 4.11 L Hgb 11.5 L Hct 35.4 L MCV 86.1 MCH 28.0 MCHC 32.5 RDW 15.6 H RDW Differential 49.7 H Plt Count 208 MPV 9.3 Immature Gran % (Auto) 0.400 Neut % (Auto) 94.4 H Lymph % (Auto) 2.2 L Winn % (Auto) 2.9 Eos % (Auto) 0.0 Baso % (Auto) 0.1 Absolute Neuts (auto) 23.4 H Absolute Lymphs (auto) 0.55 L Total Counted Not Reportable Differential Comment COMMENT Specimen Type Sample Site pH Bicarbonate Actual POC Total CO2 Base Excess O2 Saturation ABG pCO2 ABG pO2 [place] Test O2 Delivery Device Liter Flow Blood Gas Notified Whom Blood Gas Notified Time Sodium 133 L Potassium 3.8 Chloride 94 L Carbon Dioxide 32.0 Anion Gap 7 BUN 27 H Creatinine 0.85 Estim Creat Clear Calc 60.65 Est GFR (MDRD) Af Amer 113 Est GFR (MDRD) Non-Af 93 BUN/Creatinine Ratio 31.8 H Glucose 163 H Lactic Acid 1.6 Calcium 9.1 Troponin I < 0.015 12/15/18 11:10 WBC RBC Hgb Hct MCV MCH MCHC RDW RDW Differential Plt Count MPV Immature Gran % (Auto) Neut % (Auto) Lymph % (Auto) Winn % (Auto) Eos % (Auto) Baso % (Auto) Absolute Neuts (auto) Absolute Lymphs (auto) Total Counted Differential Comment Specimen Type ART Sample Site L Radial pH 7.30 L Bicarbonate Actual 31.6 H POC Total CO2 34 Base Excess 5 H O2 Saturation 91 L ABG pCO2 64.7 H ABG pO2 70 L [place] Test POS O2 Delivery Device NRB Mask Liter Flow 10.0 Blood Gas Notified Whom ED Blood Gas Notified Time 1108 Sodium Potassium Chloride Carbon Dioxide Anion Gap BUN Creatinine Estim Creat Clear Calc Est GFR (MDRD) Af Amer Est GFR (MDRD) Non-Af BUN/Creatinine Ratio Glucose Lactic Acid Calcium Troponin I Clinical Impression(s) from Imaging Studies Chest X-Ray 12/15/18 10:45 IMPRESSION: Dense consolidation in the right midlung and right lower lobe with a right pleural effusion. Electronically Signed: Ren Adam, at 11:26 EDT , Service support , Assessment/Plan All Active Problems Lung mass (Acute) Healthcare-associated pneumonia (Acute) This is a 78 years old male patient presented to the emergency room because of 5-day history of worsening shortness of breath, productive cough and wheezing and he was found to have large right lower and mid lung consolidation with right pleural effusion consistent with pneumonia with sepsis, complicated by acute on chronic hypoxic and hypercapnic respiratory failure and he is being admitted for treatment. #1 right mid and lower lung healthcare associated pneumonia/right pleural effusion/sepsis: Chest x-ray reviewed as above. Patient had CT scan chest on late October, which was reviewed as above, there was no evidence of pneumonia at that time. Patient is tachycardic, tachypneic has leukocytosis. Lactic acid was normal. Pleural effusions is likely parapneumonic. Plan: Admit to do, cardiac monitoring, keep on clear liquids, continue BiPAP, blood culture, sputum culture, urine culture, urinalysis, pneumococcal and Legionella antigen, bronchodilators, start IV vancomycin and Zosyn, repeat CBC and BMP tomorrow morning, pro time and INR, CT scan chest without contrast, pulmonology consult, obtain records from [facility], PT OT evaluation and treatment. #2 acute on chronic hypoxic and hypercapnic respiratory failure/mild respiratory acidosis: Patient was on home oxygen at 3 L due to COPD. Upon arrival to ER, pulse ox was 85% on 5 L, patient was dyspneic and tachypneic. ABG revealed pH of 7.30, PCO2 of 64 and PO2 of 70 consistent with mild respiratory acidosis secondary to CO2 retention. Plan as above, IV antibiotics, bronchodilators, CT scan chest, pulmonology consult, patient may need thoracentesis for diagnostic and therapeutic purposes. #3 recent history of pneumonia/questionable lung mass: This was back in October,, was admitted to [facility]. After admission to the inpatient rehabilitation unit, he had CT scan chest on October 28, 2018 which was read as above, showed no evidence of pneumonia or neoplasm. Plan for CT scan chest without contrast, pulmonology consult. #4 COPD/chronic respiratory failure: On home oxygen at 3 L. At this time, he is on BiPAP. Plan to continue BiPAP, bronchodilators, IV antibiotics. #5 hypertension: Blood pressure stable, continue losartan. #6 type 2 diabetes mellitus: ADA diet, Accu-Cheks, insulin sliding scale, continue Lantus insulin twice daily, hold pre-meal Humalog #7 chronic anemia: Hemoglobin stable, no evidence of active bleeding, continue iron supplement. #8 benign prostatic hypertrophy: Continue terazosin. #9 DVT prophylaxis: Subcu Lovenox. This note was generated with [employer] dictation software. It may contain incorrect words, spelling, and punctuation that were not noted in checking the note before signing. Code Visit Inpatient E&M: 93563 Init Hosp L3
--- NOTE | 2018-12-15 15:48 | CT_ITS ---
STUDY: CT CHEST WITHOUT CONTRAST REASON FOR EXAM: Male, 78 years old. Recent pneumonia RADIATION DOSAGE (If Supplied By Facility): DLP = ( 303.61 ) mGycm TECHNIQUE: Transaxial imaging was performed without the administration of intravenous contrast material. Coronal and sagittal reformatted images were created. Individualized dose optimization techniques were used for this CT. COMPARISON: None FINDINGS: Moderate to severe emphysema is present. There is a large right sided consolidation involving the right upper, middle, and lower lobes, most prominent in the right middle and lower lobes. Multiple air bronchograms are present throughout it. There is a small right effusion. There is a small left upper lobe peripheral triangular-shaped consolidation versus scar. The heart is normal in size. Coronary artery calcifications are present. There is mild mediastinal lymphadenopathy, likely reactive. There is no evidence of thoracic aortic aneurysm. Images through the upper abdomen demonstrate no significant abnormality. There are no destructive osseous lesions. CT/Chest without Contrast IMPRESSION: Large right-sided consolidation as described above, with small effusion, consistent in appearance with pneumonia. Underlying mass is not excluded. Short-term follow-up after resolution is recommended for mass exclusion. Small left upper lobe consolidation versus scar. Moderate to severe emphysema. Coronary artery calcifications. Electronically Signed: Sandeep Webb, at 17:26 EDT Tel , Service support ,
[2018-12-15 16:16] LABS: International Normalized Ratio 1.4; Prothrombin Time (Protime)PT. 16.7 SECONDS (11.7-14.9)
[2018-12-15] MEDS: 0.9% Normal Saline 1,000 ML 100 ML IV (16:30)
--- NOTE | 2018-12-15 16:57 | PCM.RX.CS ---
Consult Pharmacy has been consulted to manage selected antiobiotic: Vancomycin Type of Consult: New start Suspected Infection: Pneumonia Prior Doses of Antibiotics Received/Current Regimen: Vancomycin 1500mg IV x1 loading dose 12/15/18 Labs: Sodium 133 mmol/L (136-145) L 12/15/18 10:44 Potassium 3.8 mmol/L (3.5-5.1) 12/15/18 10:44 Chloride 94 mmol/L (98-107) L 12/15/18 10:44 Carbon Dioxide 32.0 mmol/L (21.0-32.0) 12/15/18 10:44 Anion Gap 7 (5-15) 12/15/18 10:44 BUN 27 mg/dL (7-18) H 12/15/18 10:44 Creatinine 0.85 mg/dL (0.70-1.30) 12/15/18 10:44 Est GFR (MDRD) Af Amer 113 mL/min (>60) 12/15/18 10:44 Est GFR (MDRD) Non-Af 93 mL/min (>60) 12/15/18 10:44 BUN/Creatinine Ratio 31.8 RATIO (10-20) H 12/15/18 10:44 Glucose 163 mg/dL (74-106) H 12/15/18 10:44 Weight used for dosin kg Estimated Creatinine Clearance: 60ml/min Goal Trough: 15-20 mcg/mL Pharmacy Plan for Drug Dosin78 year old male who is admitted for HCAP and sepsis. Pt is to receive a 25mg/kg loading dose of Vancomycin on 12/15/18. Pt will then receive a scheduled dose of 750mg q12h starting 12 hours after the loading was administered. Trough will be drawn before the 4th dose. Goal trough for the pt is 15-20. Pharmacy Service will continue to monitor and adjust dosing as required. Follow-Up Labs: Trough Vancomycin
[2018-12-15 17:41] LABS: Bacteria 0 SEEN /hpf (None Seen); Mucous, Urine 0 SEEN /hpf (<or=2+)
[2018-12-15 17:52] LABS: Color, Urine Yellow (Yellow); Glucose, Dipstick Normal (Normal); Ketone-Dipstick 5 mg/dl (Negative); Leukocyte Esterase-Dipstick 25 /ul (Negative); Nitrite-Dipstick Negative (Negative); Occult Blood-Urine 50 /ul (Negative); Protein-Dipstick 30 mg/dl (Negative); Urine Bilirubin Dipstick Negative (Negative); Urine Clarity Sl. Cloudy (Clear); Urine Urobilinogen Normal (Normal)
[2018-12-15 17:56] LABS: Bedside Glucose 162 mg/dL (70-110)
[2018-12-15] MEDS: Insulin Lispro 100 UNIT/ML INSULN.PEN SC ×2 (17:59→22:13)
[2018-12-15] MEDS: traMADol 50 MG Tablet PO (18:07)
[2018-12-15 18:08] LABS: Hyaline Cast 0-5 SEEN /lpf (0-5)
[2018-12-15] MEDS: glipiZIDE 10 MG Tablet PO (18:08)
[2018-12-15 18:09] LABS: Red Blood Cells-Urine 0-5 SEEN /hpf (0-5); White Blood Cells 0-5 SEEN /hpf (0-5)
[2018-12-15 18:10] LABS: Renal Epithelial Cells 0-5 SEEN /hpf (0-5); Squamous Epithelial Cells - UA 0-5 SEEN /hpf (0-5)
[2018-12-15] MEDS: Docusate Sodium 100 MG Capsule PO (22:12)
[2018-12-15 22:31] LABS: Bedside Glucose 181 mg/dL (70-110)
[2018-12-16] VITALS (28 sets, daily range): BP systolic 83–116; BP diastolic 44–59; PULSE 85–110; RESP 6–27; TEMP 36.5–37.2; O2SAT 93–99
[2018-12-16] MEDS: Ipratropium/Albuterol Sulfate 3 ML AMPUL.NEB INHALATION ×4 (03:15→15:10)
[2018-12-16 05:59] LABS: Absolute Lymphocyte Count 0.75 X10^3/ul (0.83-4.51); Absolute Neutrophil Count 12.2 X10^3/uL (2.0-7.7); Hemoglobin 9.9 g/dl (13.0-16.5); Lymphocyte # 0.75 X10^3/ul (4.0); Lymphocyte % 5.6 % (19-41); Mean Corp Hgb Conc 31.9 g/gl (32-36); Mean Corpuscular Hgb 27.3 pg (27.0-32.0); Mean Corpuscular Volume 85.6 fL (80-94); Mean Platelet Vol. 9.4 fl (6.2-12.0); Monocyte# 0.43 X10^3/uL; Monocyte% 3.2 % (0-10); Neutrophil # 12.23 X10^3/uL (2.7-7.7); Platelet Count 175 K/mm3 (150-450); RBC Distribution Width CV 15.5 % (11.6-14.6); RBC Distribution Width SD 49.5 fl (35.1-43.9); Red Blood Count 3.62 M/mm3 (4.6-6.2); White Blood Count 13.4 K/mm3 (4.4-11.0)
[2018-12-16 06:12] LABS: POSITIVE COUNT NO; POSITIVE DIFFERENTIAL NO; POSITIVE MORPHOLOGY NO
[2018-12-16 06:28] LABS: Anion Gap 6 (5-15); BUN 25 mg/dL (7-18); BUN/Creat Ratio 35.8 RATIO (10-20); Calcium,Total 8.6 mg/dL (8.5-10.1); Chloride 97 mmol/L (98-107); EST Glomerular Filtration Rate 117 mL/min (>60); Est Glom Filt Rate - Afr Amer 141 mL/min (>60); Estimated Creatinine Clearance 50.72 ml/min; Glucose 40 mg/dL (74-106); Potassium 3.4 mmol/L (3.5-5.1); Sodium Level 136 mmol/L (136-145)
[2018-12-16] MEDS: Dextrose 50%-Water 25 GM/50 ML DISP.SYRIN IV (06:30)
[2018-12-16 06:45] LABS: Bedside Glucose 188 mg/dL (70-110)
[2018-12-16] MEDS: Glucerna Shake 120 ML LIQUID PO (08:04)
[2018-12-16] MEDS: Iron Polysaccharide Complex 150 MG CAPSULE PO (08:04)
[2018-12-16] MEDS: glipiZIDE 10 MG Tablet PO (08:04)
[2018-12-16 08:40] LABS: Bedside Glucose 87 mg/dL (70-110)
--- NOTE | 2018-12-16 08:41 | PCM.CONS.PUL ---
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 Patient reportedly has been coughing up yellow sputum and feels this is similar to his prior episodes of pneumonia. Patient is typically taking care of at [facility], in the [place] system, from a pulmonary perspective. Patient is not a very good historian, but had reported worsening shortness of breath with any exertion. Patient had reported headache on initial presentation. In the emergency room, patient was noted to be afebrile, but tachycardic at 110 bpm. Lungs were diminished bilaterally, but lab work-up showed a CBC with leukocytosis of 24.8 and chest x-ray showed a large consolidated right lower lobe infiltrate. An ABG on a nonrebreather mask showed 7.29/64/70/91%. Patient was placed on BiPAP therapy and admitted to the PCU for further evaluation. Overnight, patient has been relatively BiPAP dependent. Patient does report subjective improvement in overall condition. Cough has improved, but is still productive of thick yellow sputum. Patient denies any chest pain, abdominal pain, nausea or vomiting. Patient has only been getting a liquid diet and did have some hypoglycemia this morning that was treated conservatively with good response. Patient reportedly does follow with pulmonary at the [place] and knows he has bad COPD. Patient is unaware of any test results. Patient reportedly was recently hospitalized in October for pneumonia and discharged from rehab on November 04, 2018. There was some discussion of a possible lung mass previously, but reportedly CT scan completed October 28, 2018 did not show any emphysema. Review of systems otherwise negative x10 systems. 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) Diabetes mellitus (Chronic) BPH (benign prostatic hyperplasia) (Chronic) Iron deficiency anemia (Chronic) Allergic rhinitis (Chronic) Insomnia (Chronic) Allergies morphine Allergy (Verified 12/15/18 14:50) crazy Home Medications: Ambulatory Orders Medication Instructions Recorded Fluticasone 0.05% [Flonase Nasal 1 spray NASAL 5X/DAY PRN 10/27/18 [place]] Losartan Potassium 25 mg PO DAILY 10/27/18 Melatonin 3 mg PO QHS PRN 10/27/18 Potassium Chloride [K-Dur] 20 meq PO PRN PRN 10/27/18 Albuterol Aerosols [Ventolin 2.5 mg INHALATION Q4H PRN PRN #100 11/04/18 Aerosols] vial.neb. Insulin Glargine [Lantus SoloStar 15 units SUBCUT BID #1 pen 11/04/18 Pen] Insulin Lispro [Humalog KwikPen] 10 unit SUBCUT TIDAC #1 insuln.pen 11/04/18 Ipratropium/Albuterol Sulfate 3 ml INHALATION Q4H.RT #100 11/04/18 [Duoneb] ampul.neb Iron Polysaccharide Complex 150 mg PO DAILYCM #30 cap 11/04/18 [Ferrex 150] Menthol/Lanolin/Calamine/Znox 1 applic TOPICAL 0600,2200 tube 11/04/18 [Calmoseptine Ointment] Budesonide/Formoterol 160/4.5 2 puff INHALATION BID 12/15/18 [Symbicort 160/4.5 Mcg Inhaler (SP)] Docusate Sodium 100 mg PO BID 12/15/18 Furosemide [Lasix] 40 mg PO PRN PRN 12/15/18 Glipizide 10 mg PO BIDCM 12/15/18 Guaifenesin 400 mg PO PRN PRN 12/15/18 Terazosin HCl 10 mg PO DAILY 12/15/18 traMADol [Ultram (G)] 50 mg PO BID PRN PRN 12/15/18 Surgical History: - - Needle biopsy of lung, Brennon filter. Psychiatric History: No pertinent psych hx Lives: Spouse/ Significant Other Smoking Status: Former smoker Alcohol: None Drugs: None - *Family History Maternal History Items: No pertinent history Paternal History Items: No pertinent history Review of Systems Comment: See HPI Patient Problems: Active and Suspected Problems Healthcare-associated pneumonia (Acute) Objective: CT scan of the chest was personally reviewed. Patient does have advanced emphysematous changes in most lung glover. Patient does have consolidation of the right lower and middle lobe. - Physical Exam General: Alert, Oriented x3, Cooperative, No apparent distress - While on BiPAP therapy, - - Good BiPAP synchrony. Thin build. HEENT: Atraumatic, PERRLA, EOMI, Normocephalic, - - Some temporal wasting. Oral: Moist Mucosa, No Gingival or Mucosal Lesions/ Ulcerations Neck: Supple, No JVD, No Nodes, Trachea Midline Lungs: No rales, Diminished, Rhonchi - Right base, Wheezes - Sporadic Cardiovascular: Regular rate, Regular Rhythm, Normal S1, Normal S2, No murmurs, No rub noted, No Gallop Abdomen: Bowel Sounds Present, Soft, Non Tender, Non-Distended Extremities: No cyanosis, No edema, Capillary Refill Less than 3 Seconds, Clubbing Skin: No rashes, No breakdown Musculoskeletal: No Tenderness to Palpation of Joints or Extremities Lymphatic: No Cervical, Supraclavicular, or Inguinal Adenopathy Neurological: Cranial nerves II-XII grossly intact, Neuro grossly intact, Motor Exam 5/5 strength throughout Psych/Mental Status: Alert and oriented to time, place, person, mood and affect Vital Signs Temp Pulse Resp BP Pulse Ox 37.2 C 93 20 H 113/59 L 96 12/16/18 08:00 12/16/18 08:00 12/16/18 08:00 12/16/18 08:00 12/16/18 08:00 Oxygen Flow Rate (L/min) 10 Oxygen Delivery Method Bi-pap Weight: 57.062 kg Body Mass Index (BMI) 18.0 Intake and Output for Last 24 Hours 12/14/18 12/15/18 12/16/18 23:59 23:59 23:59 Intake Total 533.7 / 533.7 1275 / 1275 Output Total 350 / 350 375 / 375 Balance 183.7 / 183.7 900 / 900 Microbiology Past 72 Hours 12/15/18 10:44 Bacteria Detection (PCR) - Preliminary Blood Culture (Wb) #2 - Anticubital Left Strep not Strep pneumo Blood Culture - Preliminary 12/15/18 10:57 Blood Culture - Preliminary Blood Culture (Wb) - Left Forearm 12/15/18 17:30 Streptococcus pneumoniae Antigen (M - Final Urine, Clean Catch Streptococcus pneumonia Ag 12/15/18 17:30 Legionella Antigen - Final Urine, Clean Catch Laboratory Tests Past 24 Hrs 12/15/18 12/15/18 12/15/18 10:44 10:44 10:44 WBC 24.8 H RBC 4.11 L Hgb 11.5 L Hct 35.4 L MCV 86.1 MCH 28.0 MCHC 32.5 RDW 15.6 H RDW Differential 49.7 H Plt Count 208 MPV 9.3 Immature Gran % (Auto) 0.400 Neut % (Auto) 94.4 H Lymph % (Auto) 2.2 L Garrard % (Auto) 2.9 Eos % (Auto) 0.0 Baso % (Auto) 0.1 Absolute Neuts (auto) 23.4 H Absolute Lymphs (auto) 0.55 L Total Counted Not Reportable Differential Comment COMMENT PT INR Specimen Type Sample Site pH Bicarbonate Actual POC Total CO2 Base Excess O2 Saturation ABG pCO2 ABG pO2 Daquan Test O2 Delivery Device Liter Flow Blood Gas Notified Whom Blood Gas Notified Time Sodium 133 L Potassium 3.8 Chloride 94 L Carbon Dioxide 32.0 Anion Gap 7 BUN 27 H Creatinine 0.85 Estim Creat Clear Calc 60.65 Est GFR (MDRD) Af Amer 113 Est GFR (MDRD) Non-Af 93 BUN/Creatinine Ratio 31.8 H Glucose 163 H Lactic Acid 1.6 Calcium 9.1 Troponin I < 0.015 Urine Color Urine Clarity Urine pH Ur Specific [place] Urine Protein Urine Glucose (UA) Urine Ketones Urine Occult Blood Urine Nitrite Urine Bilirubin Urine Urobilinogen Ur Leukocyte Esterase Urine RBC Urine WBC Ur Squamous Epith Cells Ur Renal Epithelial Cell Urine Bacteria Hyaline Casts Urine Mucus 12/15/18 12/15/18 12/15/18 10:44 11:10 17:30 WBC RBC Hgb Hct MCV MCH MCHC RDW RDW Differential Plt Count MPV Immature Gran % (Auto) Neut % (Auto) Lymph % (Auto) Garrard % (Auto) Eos % (Auto) Baso % (Auto) Absolute Neuts (auto) Absolute Lymphs (auto) Total Counted Differential Comment PT 16.7 H INR 1.4 Specimen Type ART Sample Site L Radial pH 7.30 L Bicarbonate Actual 31.6 H POC Total CO2 34 Base Excess 5 H O2 Saturation 91 L ABG pCO2 64.7 H ABG pO2 70 L Daquan Test POS O2 Delivery Device NRB Mask Liter Flow 10.0 Blood Gas Notified Whom ED Blood Gas Notified Time 1108 Sodium Potassium Chloride Carbon Dioxide Anion Gap BUN Creatinine Estim Creat Clear Calc Est GFR (MDRD) Af Amer Est GFR (MDRD) Non-Af BUN/Creatinine Ratio Glucose Lactic Acid Calcium Troponin I Urine Color Yellow Urine Clarity Sl. Cloudy Urine pH 5.0 Ur Specific [place] 1.020 Urine Protein 30 H Urine Glucose (UA) Normal Urine Ketones 5 H Urine Occult Blood 50 H Urine Nitrite Negative Urine Bilirubin Negative Urine Urobilinogen Normal Ur Leukocyte Esterase 25 H Urine RBC 0-5 SEEN Urine WBC 0-5 SEEN Ur Squamous Epith Cells 0-5 SEEN Ur Renal Epithelial Cell 0-5 SEEN Urine Bacteria 0 SEEN Hyaline Casts 0-5 SEEN Urine Mucus 0 SEEN 12/16/18 12/16/18 05:40 05:40 WBC 13.4 H RBC 3.62 L Hgb 9.9 L Hct 31.0 L MCV 85.6 MCH 27.3 MCHC 31.9 L RDW 15.5 H RDW Differential 49.5 H Plt Count 175 MPV 9.4 Immature Gran % (Auto) 0.200 Neut % (Auto) 91.0 H Lymph % (Auto) 5.6 L G[place] % (Auto) 3.2 Eos % (Auto) 0.0 Baso % (Auto) 0.0 Absolute Neuts (auto) 12.2 H Absolute Lymphs (auto) 0.75 L Total Counted Not Reportable Differential Comment PT INR Specimen Type Sample Site pH Bicarbonate Actual POC Total CO2 Base Excess O2 Saturation ABG pCO2 ABG pO2 Daquan Test O2 Delivery Device Liter Flow Blood Gas Notified Whom Blood Gas Notified Time Sodium 136 Potassium 3.4 L Chloride 97 L Carbon Dioxide 33.0 H Anion Gap 6 BUN 25 H Creatinine 0.70 Estim Creat Clear Calc 50.72 Est GFR (MDRD) Af Amer 141 Est GFR (MDRD) Non-Af 117 BUN/Creatinine Ratio 35.8 H Glucose 40 L* Lactic Acid Calcium 8.6 Troponin I Urine Color Urine Clarity Urine pH Ur Specific [place] Urine Protein Urine Glucose (UA) Urine Ketones Urine Occult Blood Urine Nitrite Urine Bilirubin Urine Urobilinogen Ur Leukocyte Esterase Urine RBC Urine WBC Ur Squamous Epith Cells Ur Renal Epithelial Cell Urine Bacteria Hyaline Casts Urine Mucus POC Glucose 12/16/18 12/16/18 12/15/18 08:19 06:40 22:10 POC Glucose 87 188 H 181 H 12/15/18 17:39 POC Glucose 162 H Clinical Impression(s) from Imaging Studies Chest X-Ray 12/15/18 10:45 IMPRESSION: Dense consolidation in the right midlung and right lower lobe with a right pleural effusion. Electronically Signed: Ren Jair, at 11:26 EDT , Service support , Chest CT 12/15/18 15:48 IMPRESSION: Large right-sided consolidation as described above, with small effusion, consistent in appearance with pneumonia. Underlying mass is not excluded. Short-term follow-up after resolution is recommended for mass exclusion. Small left upper lobe consolidation versus scar. Moderate to severe emphysema. Coronary artery calcifications. Electronically Signed: Sandeep Webb, at 17:26 EDT Tel , Service support , Assessment/Plan All Active Problems Lung mass (Acute) Healthcare-associated pneumonia (Acute) RECOMMENDATIONS: 1. Continue BiPAP, breaks as tolerated 2. Continue empiric healthcare associated antibiotics, bronchodilators 3. Add steroid therapy 4. Consider discontinuation of glipizide with addition of sliding scale insulin IMPRESSIONS: 1. Acute on chronic combined respiratory failure secondary to healthcare associated pneumonia Patient does have significant emphysematous changes noted on CT scan of the chest. Pneumococcal antigen is positive, along with both blood cultures. Patient is on appropriate broad-spectrum antibiotics for now. We will add steroid therapy. Continue with antibiotics and bronchodilators. Patient may take BiPAP breaks through the day. Patient is on 3 L nasal cannula oxygen at home. 2. Severe sepsis secondary to healthcare associated pneumonia Patient with positive blood cultures. Would recommend keeping broad-spectrum antibiotics for another 24 to 48 hours until cultures are finalized as patient is at high risk for multidrug-resistant organisms given frequent exacerbations/hospitalizations. 3. Type 2 diabetes mellitus Consider discontinuation of glipizide therapy. Patient will have decreased p.o. intake secondary to BiPAP requirements. Defer to hospitalist. 4. Chronic anemia/BPH/hypertension/advanced age/debility Complicates care, management, recovery and prognosis. Okay to continue with baseline medications. Code Visit Inpatient E&M: 31946 Init Hosp L3
--- NOTE | 2018-12-16 08:49 | CON.PCM_ITS ---
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 Patient reportedly has been coughing up yellow sputum and feels this is similar to his prior episodes of pneumonia. Patient is typically taking care of at [facility], in the [place] system, from a pulmonary perspective. Patient is not a very good historian, but had reported worsening shortness of breath with any exertion. Patient had reported headache on initial presentation. In the emergency room, patient was noted to be afebrile, but tachycardic at 110 bpm. Lungs were diminished bilaterally, but lab work-up showed a CBC with leukocytosis of 24.8 and chest x-ray showed a large consolidated right lower lobe infiltrate. An ABG on a nonrebreather mask showed 7.29/64/70/91%. Patient was placed on BiPAP therapy and admitted to the PCU for further evaluation. Overnight, patient has been relatively BiPAP dependent. Patient does report subjective improvement in overall condition. Cough has improved, but is still productive of thick yellow sputum. Patient denies any chest pain, abdominal pain, nausea or vomiting. Patient has only been getting a liquid diet and did have some hypoglycemia this morning that was treated conservatively with good response. Patient reportedly does follow with pulmonary at the [place] and knows he has bad COPD. Patient is unaware of any test results. Patient reportedly was recently hospitalized in October for pneumonia and discharged from rehab on November 04, 2018. There was some discussion of a possible lung mass previously, but reportedly CT scan completed October 28, 2018 did not show any emphysema. Review of systems otherwise negative x10 systems. 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) Diabetes mellitus (Chronic) BPH (benign prostatic hyperplasia) (Chronic) Iron deficiency anemia (Chronic) Allergic rhinitis (Chronic) Insomnia (Chronic) Allergies morphine Allergy (Verified 12/15/18 14:50) crazy Home Medications: Ambulatory Orders Medication Instructions Recorded Fluticasone 0.05% [Flonase Nasal 1 spray NASAL 5X/DAY PRN 10/27/18 [place]] Losartan Potassium 25 mg PO DAILY 10/27/18 Melatonin 3 mg PO QHS PRN 10/27/18 Potassium Chloride [K-Dur] 20 meq PO PRN PRN 10/27/18 Albuterol Aerosols [Ventolin 2.5 mg INHALATION Q4H PRN PRN #100 11/04/18 Aerosols] vial.neb. Insulin Glargine [Lantus SoloStar 15 units SUBCUT BID #1 pen 11/04/18 Pen] Insulin Lispro [Humalog KwikPen] 10 unit SUBCUT TIDAC #1 insuln.pen 11/04/18 Ipratropium/Albuterol Sulfate 3 ml INHALATION Q4H.RT #100 11/04/18 [Duoneb] ampul.neb Iron Polysaccharide Complex 150 mg PO DAILYCM #30 cap 11/04/18 [Ferrex 150] Menthol/Lanolin/Calamine/Znox 1 applic TOPICAL 0600,2200 tube 11/04/18 [Calmoseptine Ointment] Budesonide/Formoterol 160/4.5 2 puff INHALATION BID 12/15/18 [Symbicort 160/4.5 Mcg Inhaler (SP)] Docusate Sodium 100 mg PO BID 12/15/18 Furosemide [Lasix] 40 mg PO PRN PRN 12/15/18 Glipizide 10 mg PO BIDCM 12/15/18 Guaifenesin 400 mg PO PRN PRN 12/15/18 Terazosin HCl 10 mg PO DAILY 12/15/18 traMADol [Ultram (G)] 50 mg PO BID PRN PRN 12/15/18 Surgical History: - - Needle biopsy of lung, Brennon filter. Psychiatric History: No pertinent psych hx Lives: Spouse/ Significant Other Smoking Status: Former smoker Alcohol: None Drugs: None - *Family History Maternal History Items: No pertinent history Paternal History Items: No pertinent history Review of Systems Comment: See HPI Patient Problems: Active and Suspected Problems Healthcare-associated pneumonia (Acute) Objective: CT scan of the chest was personally reviewed. Patient does have advanced emphysematous changes in most lung glover. Patient does have consolidation of the right lower and middle lobe. - Physical Exam General: Alert, Oriented x3, Cooperative, No apparent distress - While on BiPAP therapy, - - Good BiPAP synchrony. Thin build. HEENT: Atraumatic, PERRLA, EOMI, Normocephalic, - - Some temporal wasting. Oral: Moist Mucosa, No Gingival or Mucosal Lesions/ Ulcerations Neck: Supple, No JVD, No Nodes, Trachea Midline Lungs: No rales, Diminished, Rhonchi - Right base, Wheezes - Sporadic Cardiovascular: Regular rate, Regular Rhythm, Normal S1, Normal S2, No murmurs, No rub noted, No Gallop Abdomen: Bowel Sounds Present, Soft, Non Tender, Non-Distended Extremities: No cyanosis, No edema, Capillary Refill Less than 3 Seconds, Clubbing Skin: No rashes, No breakdown Musculoskeletal: No Tenderness to Palpation of Joints or Extremities Lymphatic: No Cervical, Supraclavicular, or Inguinal Adenopathy Neurological: Cranial nerves II-XII grossly intact, Neuro grossly intact, Motor Exam 5/5 strength throughout Psych/Mental Status: Alert and oriented to time, place, person, mood and affect Vital Signs Temp Pulse Resp BP Pulse Ox 37.2 C 93 20 H 113/59 L 96 12/16/18 08:00 12/16/18 08:00 12/16/18 08:00 12/16/18 08:00 12/16/18 08:00 Oxygen Flow Rate (L/min) 10 Oxygen Delivery Method Bi-pap Weight: 57.062 kg Body Mass Index (BMI) 18.0 Intake and Output for Last 24 Hours 12/14/18 12/15/18 12/16/18 23:59 23:59 23:59 Intake Total 533.7 / 533.7 1275 / 1275 Output Total 350 / 350 375 / 375 Balance 183.7 / 183.7 900 / 900 Microbiology Past 72 Hours 12/15/18 10:44 Bacteria Detection (PCR) - Preliminary Blood Culture (Wb) #2 - Anticubital Left Strep not Strep pneumo Blood Culture - Preliminary 12/15/18 10:57 Blood Culture - Preliminary Blood Culture (Wb) - Left Forearm 12/15/18 17:30 Streptococcus pneumoniae Antigen (M - Final Urine, Clean Catch Streptococcus pneumonia Ag 12/15/18 17:30 Legionella Antigen - Final Urine, Clean Catch Laboratory Tests Past 24 Hrs 12/15/18 12/15/18 12/15/18 10:44 10:44 10:44 WBC 24.8 H RBC 4.11 L Hgb 11.5 L Hct 35.4 L MCV 86.1 MCH 28.0 MCHC 32.5 RDW 15.6 H RDW Differential 49.7 H Plt Count 208 MPV 9.3 Immature Gran % (Auto) 0.400 Neut % (Auto) 94.4 H Lymph % (Auto) 2.2 L [place] % (Auto) 2.9 Eos % (Auto) 0.0 Baso % (Auto) 0.1 Absolute Neuts (auto) 23.4 H Absolute Lymphs (auto) 0.55 L Total Counted Not Reportable Differential Comment COMMENT PT INR Specimen Type Sample Site pH Bicarbonate Actual POC Total CO2 Base Excess O2 Saturation ABG pCO2 ABG pO2 [place] Test O2 Delivery Device Liter Flow Blood Gas Notified Whom Blood Gas Notified Time Sodium 133 L Potassium 3.8 Chloride 94 L Carbon Dioxide 32.0 Anion Gap 7 BUN 27 H Creatinine 0.85 Estim Creat Clear Calc 60.65 Est GFR (MDRD) Af Amer 113 Est GFR (MDRD) Non-Af 93 BUN/Creatinine Ratio 31.8 H Glucose 163 H Lactic Acid 1.6 Calcium 9.1 Troponin I < 0.015 Urine Color Urine Clarity Urine pH Ur Specific [place] Urine Protein Urine Glucose (UA) Urine Ketones Urine Occult Blood Urine Nitrite Urine Bilirubin Urine Urobilinogen Ur Leukocyte Esterase Urine RBC Urine WBC Ur Squamous Epith Cells Ur Renal Epithelial Cell Urine Bacteria Hyaline Casts Urine Mucus 12/15/18 12/15/18 12/15/18 10:44 11:10 17:30 WBC RBC Hgb Hct MCV MCH MCHC RDW RDW Differential Plt Count MPV Immature Gran % (Auto) Neut % (Auto) Lymph % (Auto) [place] % (Auto) Eos % (Auto) Baso % (Auto) Absolute Neuts (auto) Absolute Lymphs (auto) Total Counted Differential Comment PT 16.7 H INR 1.4 Specimen Type ART Sample Site L Radial pH 7.30 L Bicarbonate Actual 31.6 H POC Total CO2 34 Base Excess 5 H O2 Saturation 91 L ABG pCO2 64.7 H ABG pO2 70 L [place]qu[place] Test POS O2 Delivery Device NRB Mask Liter Flow 10.0 Blood Gas Notified Whom ED Blood Gas Notified Time 1108 Sodium Potassium Chloride Carbon Dioxide Anion Gap BUN Creatinine Estim Creat Clear Calc Est GFR (MDRD) Af Amer Est GFR (MDRD) Non-Af BUN/Creatinine Ratio Glucose Lactic Acid Calcium Troponin I Urine Color Yellow Urine Clarity Sl. Cloudy Urine pH 5.0 Ur Specific [place] 1.020 Urine Protein 30 H Urine Glucose (UA) Normal Urine Ketones 5 H Urine Occult Blood 50 H Urine Nitrite Negative Urine Bilirubin Negative Urine Urobilinogen Normal Ur Leukocyte Esterase 25 H Urine RBC 0-5 SEEN Urine WBC 0-5 SEEN Ur Squamous Epith Cells 0-5 SEEN Ur Renal Epithelial Cell 0-5 SEEN Urine Bacteria 0 SEEN Hyaline Casts 0-5 SEEN Urine Mucus 0 SEEN 12/16/18 12/16/18 05:40 05:40 WBC 13.4 H RBC 3.62 L Hgb 9.9 L Hct 31.0 L MCV 85.6 MCH 27.3 MCHC 31.9 L RDW 15.5 H RDW Differential 49.5 H Plt Count 175 MPV 9.4 Immature Gran % (Auto) 0.200 Neut % (Auto) 91.0 H Lymph % (Auto) 5.6 L [place] % (Auto) 3.2 Eos % (Auto) 0.0 Baso % (Auto) 0.0 Absolute Neuts (auto) 12.2 H Absolute Lymphs (auto) 0.75 L Total Counted Not Reportable Differential Comment PT INR Specimen Type Sample Site pH Bicarbonate Actual POC Total CO2 Base Excess O2 Saturation ABG pCO2 ABG pO2 [place] Test O2 Delivery Device Liter Flow Blood Gas Notified Whom Blood Gas Notified Time Sodium 136 Potassium 3.4 L Chloride 97 L Carbon Dioxide 33.0 H Anion Gap 6 BUN 25 H Creatinine 0.70 Estim Creat Clear Calc 50.72 Est GFR (MDRD) Af Amer 141 Est GFR (MDRD) Non-Af 117 BUN/Creatinine Ratio 35.8 H Glucose 40 L* Lactic Acid Calcium 8.6 Troponin I Urine Color Urine Clarity Urine pH Ur Specific [place] Urine Protein Urine Glucose (UA) Urine Ketones Urine Occult Blood Urine Nitrite Urine Bilirubin Urine Urobilinogen Ur Leukocyte Esterase Urine RBC Urine WBC Ur Squamous Epith Cells Ur Renal Epithelial Cell Urine Bacteria Hyaline Casts Urine Mucus POC Glucose 12/16/18 12/16/18 12/15/18 08:19 06:40 22:10 POC Glucose 87 188 H 181 H 12/15/18 17:39 POC Glucose 162 H Clinical Impression(s) from Imaging Studies Chest X-Ray 12/15/18 10:45 IMPRESSION: Dense consolidation in the right midlung and right lower lobe with a right pleural effusion. Electronically Signed: Ren Jair, at 11:26 EDT , Service support , Chest CT 12/15/18 15:48 IMPRESSION: Large right-sided consolidation as described above, with small effusion, consistent in appearance with pneumonia. Underlying mass is not excluded. Short-term follow-up after resolution is recommended for mass exclusion. Small left upper lobe consolidation versus scar. Moderate to severe emphysema. Coronary artery calcifications. Electronically Signed: Sandeep eWbb, at 17:26 EDT Tel , Service support , Assessment/Plan All Active Problems Lung mass (Acute) Healthcare-associated pneumonia (Acute) RECOMMENDATIONS: 1. Continue BiPAP, breaks as tolerated 2. Continue empiric healthcare associated antibiotics, bronchodilators 3. Add steroid therapy 4. Consider discontinuation of glipizide with addition of sliding scale insulin IMPRESSIONS: 1. Acute on chronic combined respiratory failure secondary to healthcare associated pneumonia Patient does have significant emphysematous changes noted on CT scan of the chest. Pneumococcal antigen is positive, along with both blood cultures. Patient is on appropriate broad-spectrum antibiotics for now. We will add steroid therapy. Continue with antibiotics and bronchodilators. Patient may take BiPAP breaks through the day. Patient is on 3 L nasal cannula oxygen at home. 2. Severe sepsis secondary to healthcare associated pneumonia Patient with positive blood cultures. Would recommend keeping broad- spectrum antibiotics for another 24 to 48 hours until cultures are finalized as patient is at high risk for multidrug-resistant organisms given frequent exacerbations/hospitalizations. 3. Type 2 diabetes mellitus Consider discontinuation of glipizide therapy. Patient will have decreased p.o. intake secondary to BiPAP requirements. Defer to hospitalist. 4. Chronic anemia/BPH/hypertension/advanced age/debility Complicates care, management, recovery and prognosis. Okay to continue with baseline medications. Code Visit Inpatient E&M: 31784 Init Hosp L3
[2018-12-16] MEDS: Doxazosin 4 MG Tablet 8 MG PO (09:48)
[2018-12-16] MEDS: Losartan Potassium 25 MG Tablet PO (09:48)
[2018-12-16] MEDS: Docusate Sodium 100 MG Capsule PO (09:48)
[2018-12-16] MEDS: guaiFENesin 1,200 MG Tablet 1200 MG PO (09:48)
[2018-12-16] MEDS: Enoxaparin 40 MG/0.4 ML Syringe SC (09:49)
--- NOTE | 2018-12-16 10:09 | CASEMGMT ---
MÓNICA NICHOLS NOTE: To room to talk with pt. Introduced self and role of MÓNICA NICHOLS. Pt states he still wishes to transfer to [facility] if a bed would become available. CARLOS Trivedi RN, CM, made aware. Updated clinical information faxed to [place] transfer center/[facility]. Vernon LAL RN CM
--- NOTE | 2018-12-16 11:01 | CASEMGMT ---
Addendum entered by Marilu Wells 12/16/18 13:56: Consent faxed to Cristina at [place] transfer [facility] at this time. Tonia SALES CM Original Note: Addendum entered by Marilu Wells 12/16/18 13:12: This RN CM received a call back from Cristina at this the [place] transfer center and she states that their physician would like to speak with Dr. Vides DELPHINE. Call to Dr. Vides to notify and after ok, his number was provided to Cristina. This RN CM then received a call back from Cristina stating that Dr. Resendiz will take pt in their MICU stepdown and there is a bed available. She states that she will set up transport for 1430. She states that she is faxing Physician certification and patient consent for transfer at this time and that pt/physician both need to sign and then it needs to be faxed back to her DELPHINE. Florence-charge accounts audit clerk, Rosmery-bedside RN, and Mirlande, hospital secretary all updated at this time, voices understanding. Dr. Vides aware and states will be down to sign consent. This RN CM to room to update pt at this time and pt still agrees to be transferred and signs consent at this time. Pt is A/Ox4 at this time. Rosmery SALES provided with MICU stepdown extension to call report. Tonia SALES CM Original Note: Addendum entered by Marilu Wells 12/16/18 11:42: Cristina called this RN CM back and requested any notes from 12/16/18 and more vitals to be faxed. Clinicals faxed at this time. Tonia SALES CM Original Note: Addendum entered by Marilu Wells 12/16/18 11:07: Contact info for Cristina at the [place] [phone] ext [phone]. Tonia SALES CM Original Note: Call to Cristina at [place] transfer [facility] and she is aware that pt is willing to transfer. She states that she will call this RN CM back after she reviews pt information and checks bed availability. Pt is still on bipap at this time. Tonia SALES CM
--- NOTE | 2018-12-16 11:55 | CASEMGMT ---
Addendum entered by Nicky Li 12/16/18 12:12: Call placed to [facility] and VM message left with RN on Pact team 11 to notify them pt is admitted to [facility]. Provided FOREST PATHOLOGY TEACHER CM S.Russell's, phone number. Original Note: RN CM STOCKING AND BOX SHOP SUPERVISOR CM to room to meet with patient for initial transition planning/care coordination assessment. Pt voices understanding and consents to assessment at this time. Pt sitting up in chair beside bed w/BIPAP mask in place. @ bedside and provided most of the answers during RN CM assessment. Pt is A/O at this time and answers all questions appropriately. Care providers, pharmacy, and demographics verified/updated at this time. PCP: Dr Boyd Rodney, [facility]: Gilda Steen, PRATIBHA. states pt has 2 appts @ the [facility] on Friday. Specialists: Farm Loan Inspector @ [facility], Pain mgmt MD @ [facility] Preferred Pharmacy: Rosi Aid: [facility]. Insurance: [place], [place] Prescription Benefit: MD Living Will/HPOA: States does not have LW or HCPOA . Interested in more information and would like to talk to SW while here @ [facility], but states wants to wait to talk to her once his breathing has improved. MICHELLE Villalta, notified. LNOK: , Daughter Living Arrangements: Lives with and dtr in one-story home w/basement. 2 steps to enter either through the front door or from the garage. states pt rarely goes to the basement. and daughter assist pt with care when needed. Transportation: Pt drives. or daughter assists with transportation when needed. DME: States has the following DME: shower chair, raised toilet seat, cane, rails/grab bars, hand held shower, walker, rollator, W/C, medical alert button, O2 @ 3 L/M via n/c that he got through the MD. Has portability and concentrator. Has BIPAP and nebulizer that he also got through the MD. denies need for further DME at this time. HHC/SNF: Pt was on TCU until 11/07/18. Pt states wishes to discharge to TCU from [facility] if he does not end up getting transferred to [facility]. MICHELLE Villalta, notified of pt's wishes for TCU. Has never had HHC and states they do not want HHC. She states they have a dog that goes crazy when strangers are there. CM to follow for any further discharge planning/needs. and pt voice no further concerns/needs at this time. Advised pt and to ask for CM if any further questions/concerns/needs arise. Voices understanding. PLAN: Awaiting for bed availability to [facility]. If no bed available for transfer to [facility], TCU on discharge from [facility]. MICHELLE consult for PRISCILLA BEANN RN CM
--- NOTE | 2018-12-16 12:04 | NURSING ---
Blood sugar 59. Glass of cranberry juice provided. Asymptomatic.
[2018-12-16] MEDS: 0.9% NaCl Peripheral Flush Adult/Peds IV (15:11)
--- NOTE | 2018-12-16 15:38 | NURSING ---
Report called to Mónica at [place].
--- NOTE | 2018-12-16 15:45 | NURSING ---
Patient discharged with IV Zosyn and 0.9% Normal Saline 500mg infusing.
[2018-12-16 16:06] LABS: Bedside Glucose 114 mg/dL (70-110)
[2018-12-16 16:35] LABS: Bedside Glucose 59 mg/dL (70-110)
[2018-12-16 16:35] LABS: Bedside Glucose 84 mg/dL (70-110)
--- NOTE | 2018-12-17 18:54 | PCM.DC.SUM ---
Discharge Date and Diagnosis Date of Admission: 12/15/18 Date of Discharge: 12/16/18 - Primary Discharge Diagnosis #1 acute on chronic combined respiratory failure secondary to strep pneumoniae-healthcare associated pneumonia #2 severe sepsis secondary to healthcare associated pneumonia from strep pneumoniae #3 type 2 diabetes #4 chronic obstructive pulmonary disease #5 severe protein and caloric malnutrition - Secondary Discharge Diagnosis Chronic Problems Chronic obstructive pulmonary disease (Chronic) 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) Diabetes mellitus (Chronic) BPH (benign prostatic hyperplasia) (Chronic) Iron deficiency anemia (Chronic) Allergic rhinitis (Chronic) Insomnia (Chronic) Hospital Course and Treatment Operations: None Procedures: None Summary of Care Provided: The patient is a 78 year old M was seen in the emergency room at [facility] with a chief complaint of increasing shortness of breath over several days. Patient has an extensive history of COPD and is being seen on a chronic basis at the [facility]. Work-up in the emergency room showed the patient to be tachycardic with a heart rate of 116, frequent PVCs were noted, CBC showed a white blood cell count of 24.8, portable chest x-ray showed a large consolidated right lower lobe infiltrate, ABG on nonrebreather mask showed a pH of 7.29, PCO2 of 64.7, PO2 of 70. Patient was admitted to PCU with healthcare associated pneumonia, he had requested to go to the [facility] from the emergency room but no beds were available. Patient was maintained on IV antibiotics and seen in consultation by pulmonary medicine, patient's urine antigen was positive for strep pneumoniae and his blood culture was positive for strep pneumoniae. On 12/16/2018, patient was seen and examined: On examination he appeared ill and frail. Vital signs as documented. Skin warm and dry and without overt rashes. Neck without JVD. Lungs-marked expiratory rhonchi were noted over the right lung glover, scattered expiratory wheezes were noted on the left. Patient is currently on BiPAP. Heart exam notable for regular rhythm, normal sounds and absence of murmurs, rubs or gallops. Abdomen unremarkable and without evidence of organomegaly, masses, or abdominal aortic enlargement. Extremities nonedematous. Neuro: Cranial nerves II through XII are grossly intact, no focal motor deficits were noted, sensation to light touch and pinprick intact. Psych: Patient is alert and oriented x3, he does appear ill On 12/16/2018, I was contacted by the [facility] and the patient's case was discussed with a physician there Dr. Resendiz, Dr. Resendiz agreed to accept the patient for admission at the [facility]. Patient was transferred in stable but guarded condition to the [facility]. - Physical Exam Vital Signs Temp Pulse Resp BP Pulse Ox 98.2 F 88 20 H 88/56 L 98 12/16/18 15:00 12/16/18 15:10 12/16/18 15:10 12/16/18 15:00 12/16/18 15:00 Oxygen Flow Rate (L/min) 5 Oxygen Delivery Method Bi-pap Weight: 57.062 kg Body Mass Index (BMI) 18.0 Intake and Output for Last 24 Hours 12/15/18 12/16/18 12/17/18 23:59 23:59 23:59 Intake Total 533.7 / 533.7 1982 Output Total 350 / 350 1200 / 1200 Balance 183.7 / 183.7 783 / 783 Microbiology Past 72 Hours 12/15/18 10:44 Bacteria Detection (PCR) - Final Blood Culture (Wb) #2 - Anticubital Left Blood Culture - Final Alpha Hemolytic Streptococcus 12/15/18 10:57 Blood Culture - Final Blood Culture (Wb) - Left Forearm Streptococcus pneumoniae 12/16/18 12:00 Gram Stain - Final Sputum, Expectorated/Coughed Respiratory Culture - Preliminary Culture exhibits no growth. 12/15/18 17:30 Streptococcus pneumoniae Antigen (M - Final Urine, Clean Catch Streptococcus pneumonia Ag 12/15/18 17:30 Legionella Antigen - Final Urine, Clean Catch Home Medications: Medications to take at Discharge Fluticasone 0.05% [Flonase Nasal [place]] 1 spray NASAL 5X/DAY PRN 10/27/18 Losartan Potassium 25 mg PO DAILY 10/27/18 Melatonin 3 mg PO QHS PRN 10/27/18 Potassium Chloride [K-Dur] 20 meq PO PRN PRN 10/27/18 Albuterol Aerosols [Ventolin Aerosols] 2.5 mg INHALATION Q4H PRN PRN #100 vial.neb. 11/04/18 Insulin Glargine [Lantus SoloStar Pen] 15 units SUBCUT BID #1 pen 11/04/18 Insulin Lispro [Humalog KwikPen] 10 unit SUBCUT TIDAC #1 insuln.pen 11/04/18 Ipratropium/Albuterol Sulfate [Duoneb] 3 ml INHALATION Q4H.RT #100 ampul.neb 11/04/18 Iron Polysaccharide Complex [Ferrex 150] 150 mg PO DAILYCM #30 cap 11/04/18 Menthol/Lanolin/Calamine/Znox [Calmoseptine Ointment] 1 applic TOPICAL 0600,2200 tube 11/04/18 Budesonide/Formoterol 160/4.5 [Symbicort 160/4.5 Mcg Inhaler (SP)] 2 puff INHALATION BID 12/15/18 Docusate Sodium 100 mg PO BID 12/15/18 Furosemide [Lasix] 40 mg PO PRN PRN 12/15/18 Glipizide 10 mg PO BIDCM 12/15/18 Guaifenesin 400 mg PO PRN PRN 12/15/18 Terazosin HCl 10 mg PO DAILY 12/15/18 traMADol [Ultram (G)] 50 mg PO BID PRN PRN 12/15/18 Primary Care Physician: Boyd Rodney DO [Primary Care Provider] - Disposition: Acute care Hospital Minutes spent on discharge:: 32 Patient Condition:: Guarded Medical Necessity - Tobacco Use Smoking Status: Former smoker Meaningful Use Info Meaningful Use Diagnoses (Choose all that apply): None applicable Code Visit Inpatient E&M: 84795 Disch Hosp
--- NOTE | 2018-12-17 19:01 | DS.PCM_ITS ---
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 Patient has an extensive history of COPD and is being seen on a chronic basis at the [facility] [place] [facility] [place] Work-up in the emergency room showed the patient to be tachycardic with a heart rate of 116, frequent PVCs were noted, CBC showed a white blood cell count of 24.8, portable chest x-ray showed a large consolidated right lower lobe infiltrate, ABG on nonrebreather mask showed a pH of 7.29, PCO2 of 64.7, PO2 of 70. Patient was admitted to PCU with healthcare associated pneumonia, he had requested to go to the [facility] from the emergency room but no beds were available. Patient was maintained on IV antibiotics and seen in consultation by pulmonary medicine, patient's urine antigen was positive for strep pneumoniae and his blood culture was positive for strep pneumoniae. On 12/16/2018, patient was seen and examined: On examination he appeared ill and frail. Vital signs as documented. Skin warm and dry and without overt rashes. Neck without JVD. Lungs-marked expiratory rhonchi were noted over the right lung glover, scattered expiratory wheezes were noted on the left. Patient is currently on BiPAP. Heart exam notable for regular rhythm, normal sounds and absence of murmurs, rubs or gallops. Abdomen unremarkable and without evidence of organomegaly, masses, or abdominal aortic enlargement. Extremities nonedematous. Neuro: Cranial nerves II through XII are grossly intact, no focal motor deficits were noted, sensation to light touch and pinprick intact. Psych: Patient is alert and oriented x3, he does appear ill On 12/16/2018, I was contacted by the [facility] [place] and the patient's case was discussed with a physician there Dr. Resendiz, Dr. Resendiz agreed to accept the patient for admission at the [facility] [place]. [place] in stable but [place] [facility] [place] [facility] [place] - Physical Exam Vital Signs Temp Pulse Resp BP Pulse Ox 98.2 F 88 20 H 88/56 L 98 12/16/18 15:00 12/16/18 15:10 12/16/18 15:10 12/16/18 15:00 12/16/18 15:00 Oxygen Flow Rate (L/min) 5 Oxygen Delivery Method Bi-pap Weight: 57.062 kg Body Mass Index (BMI) 18.0 Intake and Output for Last 24 Hours 12/15/18 12/16/18 12/17/18 23:59 23:59 23:59 Intake Total 533.7 / 533.7 1982 Output Total 350 / 350 1200 / 1200 Balance 183.7 / 183.7 783 / 783 Microbiology Past 72 Hours 12/15/18 10:44 Bacteria Detection (PCR) - Final Blood Culture (Wb) #2 - Anticubital Left Blood Culture - Final Alpha Hemolytic Streptococcus 12/15/18 10:57 Blood Culture - Final Blood Culture (Wb) - Left Forearm Streptococcus pneumoniae 12/16/18 12:00 Gram Stain - Final Sputum, Expectorated/Coughed Respiratory Culture - Preliminary Culture exhibits no growth. 12/15/18 17:30 Streptococcus pneumoniae Antigen (M - Final Urine, Clean Catch Streptococcus pneumonia Ag 12/15/18 17:30 Legionella Antigen - Final Urine, Clean Catch Home Medications: Medications to take at Discharge Fluticasone 0.05% [Flonase Nasal [place]] 1 spray NASAL 5X/DAY PRN 10/27/18 Losartan Potassium 25 mg PO DAILY 10/27/18 Melatonin 3 mg PO QHS PRN 10/27/18 Potassium Chloride [K-Dur] 20 meq PO PRN PRN 10/27/18 Albuterol Aerosols [Ventolin Aerosols] 2.5 mg INHALATION Q4H PRN PRN #100 vial.neb. 11/04/18 Insulin Glargine [Lantus SoloStar Pen] 15 units SUBCUT BID #1 pen 11/04/18 Insulin Lispro [Humalog KwikPen] 10 unit SUBCUT TIDAC #1 insuln.pen 11/04/18 Ipratropium/Albuterol Sulfate [Duoneb] 3 ml INHALATION Q4H.RT #100 ampul.neb 11/04/18 Iron Polysaccharide Complex [Ferrex 150] 150 mg PO DAILYCM #30 cap 11/04/18 Menthol/Lanolin/Calamine/Znox [Calmoseptine Ointment] 1 applic TOPICAL 0600,2200 tube 11/04/18 Budesonide/Formoterol 160/4.5 [Symbicort 160/4.5 Mcg Inhaler (SP)] 2 puff INHALATION BID 12/15/18 Docusate Sodium 100 mg PO BID 12/15/18 Furosemide [Lasix] 40 mg PO PRN PRN 12/15/18 Glipizide 10 mg PO BIDCM 12/15/18 Guaifenesin 400 mg PO PRN PRN 12/15/18 Terazosin HCl 10 mg PO DAILY 12/15/18 traMADol [Ultram (G)] 50 mg PO BID PRN PRN 12/15/18 Primary Care Physician: Boyd Rodney DO [Primary Care Provider] - Disposition: Acute care Hospital Minutes spent on discharge:: 32 Patient Condition:: Guarded Medical Necessity - Tobacco Use Smoking Status: Former smoker Meaningful Use Info Meaningful Use Diagnoses (Choose all that apply): None applicable Code Visit Inpatient E&M: 65438 Disch Hosp
== END 2018-12-16 15:38 | DRG 871 ==
LOC: ED 14:29 → PCU 14:52
PROVIDERS: Admitting Provider Hospitalist; Emergency Provider Emergency Medicine; Family Provider Family Medicine; PCP Family Medicine; Referring Provider Hospitalist; Visit Provider Internal Medicine
DX: A41.9 Sepsis, unspecified organism (principal); J96.21 Acute and chronic respiratory failure with hypoxia; J18.9 Pneumonia, unspecified organism; J96.22 Acute and chronic respiratory failure with hypercapnia; J44.0 Chronic obstructive pulmonary disease with (acute) lower respiratory infection; N40.0 Benign prostatic hyperplasia without lower urinary tract symptoms; R65.20 Severe sepsis without septic shock; E11.9 Type 2 diabetes mellitus without complications; Z99.81 Dependence on supplemental oxygen; Z79.4 Long term (current) use of insulin; Z87.891 Personal history of nicotine dependence; Y95 Nosocomial condition; I10 Essential (primary) hypertension; D50.9 Iron deficiency anemia, unspecified
CPT/HCPCS: 36415; 36600; 71045; 71250; 80048; 81001; 82803; 82962; 83605; 84484; 85025; 85610; 87040; 87070; 87077; 87149; 87186; 87205; 87449; 93005; 94002; 94003; 94640; 97162; 97166; 97802; 99285; J7030; J7040; J7050; A4216